=== PATIENT | male | born 1935 | race Caucasian/White ===

== ENCOUNTER 2019-02-01 14:47 | Inpatient (IN) | payer MEDICARE ==
[~2019-02-01] VITALS: Ht 172.7 cm; Wt 85.6 kg
[2019-02-01 15:45] LABS: BASOPHILS ABSOLUTE AUTO 0.03 K/mm3 (0.00-0.23); BASOPHILS PERCENT AUTO 0 % (0-2); EOSINOPHILS ABSOLUTE AUTO 0.02 K/mm3 (0.00-0.68); EOSINOPHILS PERCENT AUTO 0 % (0-6); Hemoglobin 10.3 g/dL (13.5-17.5); IMMATURE GRAN ABSOLUTE AUTO 0.07 K/mm3 (0.00-0.10); IMMATURE GRAN PERCENT AUTO 1 % (0-1); LYMPHOCYTES ABSOLUTE AUTO 1.55 K/mm3 (0.84-5.20); LYMPHOCYTES PERCENT AUTO 11 % (21-46); MONOCYTES ABSOLUTE AUTO 1.47 K/mm3 (0.16-1.47); MONOCYTES PERCENT AUTO 11 % (4-13); Mean Corpuscular HGB 32.7 pg (26.0-34.0); Mean Corpuscular HGB Conc 32.2 g/dL (31.5-36.5); Mean Corpuscular Volume 102 fL (80-100); NEUTROPHILS ABSOLUTE AUTO 10.42 K/mm3 (1.96-9.15); NEUTROPHILS PERCENT AUTO 77 % (41-73); Platelet Count 184 K/mm3 (150-400); RDW Coefficient Variation 13.2 % (11.7-14.2); RDW Standard Deviation 49.5 fL (35.1-46.3); Red Blood Cell Count 3.15 M/mm3 (4.30-5.90); White Blood Cell Count 13.56 K/mm3 (4.00-11.30)
[2019-02-01] MEDS ORDERED: Aspir 8181 MG PO (16:02)
[2019-02-01] MEDS ORDERED: Dyazide 37.5-21 EACH PO (16:03)
[2019-02-01] MEDS ORDERED: ATOR40TA PO (16:03)
[2019-02-01] MEDS ORDERED: AMLO5 PO (16:03)
[2019-02-01] MEDS ORDERED: TERA5 PO (16:04)
[2019-02-01] MEDS ORDERED: METO100 PO (16:04)
[2019-02-01 16:07] LABS: Alanine Aminotransfer (ALT/SGP 18 U/L (12-78); Albumin, Blood 3.7 g/dL (3.4-5.0); Albumin/Globulin Ratio 1.1 (0.8-1.8); Alk Phos 93 U/L (50-136); Anion Gap 8 mmol/L (6-16); Aspartate Aminotrans (AST/SGOT 23 U/L (12-37); Bilirubin, Total 0.4 mg/dL (0.1-1.0); Blood Urea Nitrogen 46 mg/dL (8-24); Bun/Creatinine Ratio 26.6 (12.0-20.0); CO2, Blood 22 mmol/L (21-32); CPK Creatine Kinase 193 U/L (39-308); Calcium, Blood 8.7 mg/dL (8.5-10.1); Chloride, Blood 115 mmol/L (98-108); Creatinine, Blood 1.73 mg/dL (0.60-1.20); Globulin, Blood 3.4 g/dL (2.2-4.0); Glomerular Filtration Rate 40 (60-); Glucose, Blood 117 mg/dL (70-99); Potassium, Blood 4.2 mmol/L (3.5-5.5); Sodium, Blood 145 mmol/L (136-145); Total Protein, Blood 7.1 g/dL (6.4-8.2); Troponin I <0.015 ng/mL (0.000-0.040)
[2019-02-01 18:38] LABS: Source, Urine Clean Catch
[2019-02-01 18:57] LABS: Bilirubin, Urine Neg (Neg); Blood, Urine Neg (Neg); Glucose Qualitative, Urine Neg (Neg); Ketones, Urine Neg (Neg); Leukocyte Esterase, Urine 1+ (Neg); Nitrite, Urine Neg (Neg); Protein, Urine 2+ (Neg); Specific Gravity, Urine 1.015 (1.003-1.022); Urobilinogen, Urine NORM (Normal)
[2019-02-01 19:01] LABS: Appearance, Urine Clear (Clear); Bacteria Rare /hpf; Color, Urine Yellow (P-Yellow); Red Blood Cells, Urine 0-2 /hpf (0-2); Squamous Epithelial Cells Rare /hpf (Few); White Blood Cells, Urine 0-2 /hpf (0-5)
--- NOTE | 2019-02-01 19:45 | NUR ---
PT ARRIVED TO ICU 9 FROM ER VIA [facility], ACCOMPANIED BY CHEMIST PHARMACEUTICAL MARILY. PT IS A/O X4 BUT IS SLOW TO RESPOND AND STATES HE IS NOT NORMALLY SLOW TO RESPOND. PT STATES WHEN HIS BP IS LOW HIS MENTATION IS FOGGY. SEE VS FLOWSHEET. PT HAS MATTHEW THAT HAS ABOUT 300ML IN THE BAG. LR BOLUS HANGING FROM ER. HAS ABRAISON TO R FOREHEAD FROM FALL AT HOME TODAY, ALSO HAS SOME SCABBED OVER SCRAPES TO RFA. PT IS ABLE TO ASSIST WITH TURNING IN BED AND HAS STRONG CROWNING HAMMER OPERATOR BILAT.
--- NOTE | 2019-02-01 20:45 | NUR ---
CALLED MICHELLE SINGER AERODYNAMICS PROFESSOR ABOUT HYPOTENSION. NEW ORDERS FOR ANOTHER BOLUS RECEIVED.
--- NOTE | 2019-02-01 20:45 | NUR ---
CRITICAL LAB VALUE/HYPOTENSION MICHELLE SINGER NP, NOTIFIED OF CRITICAL LACTIC ACID LEVEL AND HYPOTENSION. NEW ORDERS RECEIVED AT THIS TIME.
[2019-02-01] MEDS ORDERED: NAPR220 PO (21:15)
--- NOTE | 2019-02-01 22:23 | NUR ---
CALLED MICHELLE SINGER PICKLE CUTTER ABOUT PT REQUIRING MORE OXYGEN AND LS NOW CRACKLES T/O. PT COUGHED UP PINK SPUTUM. CXR DONE AND BIPAP PLACED. BIPAP 14/7 FIO2 65% AND SPO2 NOW MID 90'S. PT HAS FEVER OF 102.4, TYLENOL GIVEN. DAUGHTER AT BEDSIDE UPDATED.
[2019-02-01 22:34] LABS: PCO2 Arterial 41.6 mmHg (35-45); pH Blood Arterial 7.33 (7.35-7.45)
[2019-02-02 03:11] LABS: Hematocrit 29.7 % (37.0-53.0); Hemoglobin 9.5 g/dL (13.5-17.5); Mean Corpuscular HGB 32.1 pg (26.0-34.0); Mean Corpuscular Volume 100 fL (80-100); Mean Platelet Volume 9.9 fL (9.1-12.4); Platelet Count 150 K/mm3 (150-400); RDW Coefficient Variation 13.5 % (11.7-14.2); RDW Standard Deviation 49.8 fL (35.1-46.3); Red Blood Cell Count 2.96 M/mm3 (4.30-5.90); White Blood Cell Count 8.43 K/mm3 (4.00-11.30)
[2019-02-02 03:30] LABS: Bun/Creatinine Ratio 24.3 (12.0-20.0); Calcium, Blood 7.9 mg/dL (8.5-10.1); Creatinine, Blood 1.81 mg/dL (0.60-1.20); Potassium, Blood 4.3 mmol/L (3.5-5.5); Troponin I 0.044 ng/mL (0.000-0.040)
[2019-02-02 03:38] LABS: BAND PERCENT MAN 6 % (0-8); BASOPHILS PERCENT MAN 0 % (0-2); EOSINOPHILS PERCENT MAN 0 % (0-6); LYMPHOCYTES ABSOLUTE MAN 2.02 K/mm3 (0.84-5.20); LYMPHOCYTES PERCENT MAN 24 % (21-46); METAMYELOCYTE ABSOLUTE MAN 0.08 K/mm3 (0.00-0.00); METAMYELOCYTE PERCENT MAN 1 % (0-0); MONOCYTES PERCENT MAN 6 % (4-13); NEUTROPHILS ABSOLUTE MAN 5.81 K/mm3 (1.96-9.15); SEG NEUTROPHILS PERCENT MAN 63 % (41-73); TOTAL CELLS COUNTED 100
--- NOTE | 2019-02-02 06:08 | NUR ---
SUMMARY PT WAS ADMITTED TO ICU 9 AT 1945. WAS HYPOTENSIVE AND RECEIVED 4L BOLUS THAT CORRECTED BP BUT PT QUICKLY DEVELOPED CRACKLES T/O LUNGS AND WAS DESATING ON NC. PT WAS PLACED ON BIPAP AND REMAINED ON BIPAP THE REST OF THE NIGHT. PT STATES HE IS FEELING BETTER. LS HAVE IMPROVED WITH NOW ONLY HAVING FINE CRACKLES IN R BASE. PT PUT OUT 1100 ML IN URINE. TEMP WAS ELEVATED EARLIER IN THE NIGHT WITH TMAX OF 103.3. THIS AM IT IS DOWN TO 100.1 WITH USE OF TYLENOL AND KEEPING ONLY A LIGHT SHEET ON THE PT. PT IS A/O X4 AND SEEMS QUICKER TO RESPOND. DAUGHTER REMAINS AT BEDSIDE ALL NIGHT. NO SIGN OF DISTRESS.
--- NOTE | 2019-02-02 07:15 | NUR ---
START OF SHIFT NOTE: RECEIVED REPORT FROM LEELEE MAGDALNEO, ASSUMED CARE, PATIENT IS AWAKE AND ON BIPAP 04/27/30 %, PATIENT HAS A FULL DONATO AND A LEAK, BIPAP ALARMING CONSTANTLY, PATIENT PLACED BACK ON 6L NC TO ENABLE PT TO EAT BREAKFAST, DAUGHTER AT BEDSIDE, SLEEPING ON COT IN ROOM, PATIENT IS ALERT AND ORIENTED, LUNG SOUNDS ARE DIMINISHED, NSR WITH HR IN 60'S, AFEBRILE, TEMP 98.8, DENIES PAIN AT THIS TIME, BOWEL TONES PRESENT AND HYPERACTIVE, MATTHEW CATHETER IN PLACE, DRAINING GOOD URINE, LR AT 125 CC/HR INFUSING, CALL LIGHT IN REACH, WILL CONTINUE TO MONITOR.
--- NOTE | 2019-02-02 08:22 | NUR ---
IMAGING IN TO PERFORM ORDERED ECHO, PATIENT TOLERATING WELL, RT ALSO IN, CALL LIGHT IN REACH, WILL CONTINUE TO MONITOR.
--- NOTE | 2019-02-02 10:55 | NUR ---
DR. DEY IN TO SEE PATIENT, NEW ORDERS RECEIVED.
--- NOTE | 2019-02-02 12:07 | NUR ---
IMAGING IN TO DO ORDERED CAROTID ULTRA SOUND.
--- NOTE | 2019-02-02 14:10 | NUR ---
PATIENT RESTING COMFORTABLY AT THIS TIME, NO NEEDS IDENTIFIED, AT BEDSIDE, CALL LIGHT IN REACH, WILL CONTINUE TO MONITOR.
--- NOTE | 2019-02-02 14:30 | NUR ---
PATIENT TO IMAGING FOR ORDERED 2 VIEW CHEST XRAY, PER DR. DEY PATIENT MAY GO WITHOUT MONITOR AND NURSE.
--- NOTE | 2019-02-02 14:45 | NUR ---
PATIENT RETURNED FROM XRAY, MOVED BACK TO BED AND PLACED ON MONITOR, PATIENT TOLERATED WELL.
--- NOTE | 2019-02-02 16:13 | NUR ---
DR. DEY CALLED AND CANCELLED PULMONARY CONSULT.
--- NOTE | 2019-02-02 17:50 | NUR ---
SHIFT SUMMARY NOTE: NO ACUTE EVENTS DURING THIS SHIFT, PATIENT IS PLEASANT AND COOPERATIVE, FAMILY BROUGHT IN HEARING AIDS AND GLASSES FOR PATIENT TO INTERACT EASIER, BLOOD PRESSURES ARE IN 130'S WITH HR IN 80'S, PATIENT REMAINS ALERT AND ORIENTED, SLIGHTLY SLOW TO RESPOND, BUT WITH CONCRETE THOUGHT PROCESS, LUNG SOUNDS ARE DIMINISHED BUT CLEAR, PATIENT ON 6L NC THROUGHOUT THIS SHIFT SATING IN UPPER 90'S, NSR ON MONITOR, BOWEL TONES PRESENT BUT HYPOACTIVE, MATTHEW CATHETER IN PLACE WITH CLEAR LIGHT YELLOW URINE DRAINING ADEQUATE AMOUNTS, SCD'S IN PLACE, PATIENT HAD ECHO DONE FIRST THING THIS AM AND EF IS 55 %, CAROTID U/S SHOWED THAT RIGHT CAROTID IS 50 - 69 % OCCLUDED AND LEFT CAROTID IS OCCLUDED SEVERELY AT > 70 %, DR. DEY AWARE, 2 VIEW CHEST XRAY SHOWED IMPROVEMENT AND PULMONARY CONSULT WAS CANCELLED, PATIENT IS EATING AND DRINKING WELL, S/L AT THIS TIME, FAMILY REMAINS AT BEDSIDE, ASSISTING WITH PATIENT CARE, FOR DETAILS SEE SHIFT ASSESSMENT DOCUMENTATION AND NURSES NOTES, CALL LIGHT IN REACH, WILL CONTINUE TO MONITOR AND GIVE REPORT TO ONCOMING PRISON GUARD SUPERVISOR.
--- NOTE | 2019-02-02 20:25 | NUR ---
PT RESTING IN BED. A/O X4. DENIES PAIN AND SOB. PT IS TOLERATING 4L NC. NO SIGN OF DISTRESS. DAUGHTER AT BEDSIDE.
[2019-02-03 03:47] LABS: Hematocrit 30.7 % (37.0-53.0); Hemoglobin 9.8 g/dL (13.5-17.5); Mean Corpuscular HGB 32.8 pg (26.0-34.0); Mean Corpuscular HGB Conc 31.9 g/dL (31.5-36.5); Mean Platelet Volume 9.8 fL (9.1-12.4); Platelet Count 148 K/mm3 (150-400); RDW Coefficient Variation 13.4 % (11.7-14.2); RDW Standard Deviation 50.8 fL (35.1-46.3); Red Blood Cell Count 2.99 M/mm3 (4.30-5.90); White Blood Cell Count 15.48 K/mm3 (4.00-11.30)
[2019-02-03 03:48] LABS: Mean Corpuscular Volume 103 fL (80-100)
[2019-02-03 04:03] LABS: Albumin, Blood 2.5 g/dL (3.4-5.0); Anion Gap 5 mmol/L (6-16); Blood Urea Nitrogen 44 mg/dL (8-24); Bun/Creatinine Ratio 27.8 (12.0-20.0); CO2, Blood 27 mmol/L (21-32); Chloride, Blood 111 mmol/L (98-108); Creatinine, Blood 1.58 mg/dL (0.60-1.20); Glomerular Filtration Rate 45 (60-); Glucose, Blood 97 mg/dL (70-99); Phosphorus, Blood 2.4 mg/dL (2.5-4.9); Potassium, Blood 4.4 mmol/L (3.5-5.5); Sodium, Blood 143 mmol/L (136-145)
[2019-02-03 04:10] LABS: BAND PERCENT MAN 25 % (0-8); BASOPHILS PERCENT MAN 0 % (0-2); EOSINOPHILS PERCENT MAN 2 % (0-6); LYMPHOCYTES ABSOLUTE MAN 3.09 K/mm3 (0.84-5.20); LYMPHOCYTES PERCENT MAN 20 % (21-46); MONOCYTES ABSOLUTE MAN 1.23 K/mm3 (0.16-1.47); MONOCYTES PERCENT MAN 8 % (4-13); NEUTROPHILS ABSOLUTE MAN 10.83 K/mm3 (1.96-9.15); SEG NEUTROPHILS PERCENT MAN 45 % (41-73); TOTAL CELLS COUNTED 100
--- NOTE | 2019-02-03 06:04 | NUR ---
SUMMARY PT RESTING IN BED. NO COMPLAINTS. DID WELL THROUGH THE NIGHT WITHOUT BIPAP. O2 HAS BEEN TITRATED DOWN TO 1L NC. PT IS FEELING BETTER AND MENTATION IS QUICKER THAN THE PREVIOUS NIGHT. ABLE TO SHIFT SELF IN BED AND USE BED ADJUSTMENTS. NO SIGN OF DISTRESS. DAUGHTER AT BEDSIDE ALL NIGHT.
--- NOTE | 2019-02-03 07:15 | NUR ---
START OF SHIFT NOTE: RECEIVED REPORT FROM LEELEE MAGDALENO, ASSUMED CARE, PATIENT IS AWAKE, ALERT AND ORIENTED, RESPONDS MUCH FASTER THAN YESTERDAY, ON 1L NC WITH O2 SATS AT 94 %, VSS, SBP'S NOW SLIGHTLY ELEVATED IN 150'S, LUNG SOUNDS ARE CLEAR BUT DIMINISHED, NSR WITH HR IN 80'S TO 90'S, MURMUR HEARD, BOWEL TONES ARE PRESENT AND HYPOACTIVE, MATTHEW CATHETER IN PLACE D/T URINARY RETENTION, CLEAR LIGHT YELLOW URINE DRAINING, SCD'S IN PLACE AND PATIENT STATES "HE LIKES THOSE THINGS", ALSO VERBALIZED WISH TO MOVE D/T CHRONIC BACK PAIN, UP IN CHAIR, PATIENT WAS SLIGHTLY LIGHTHEADED, SAT AT SIDE OF BED, AND LIGHTHEADEDNESS GONE, THEN WITH WALKER UP TO CHAIR, PATIENT TOLERATED WELL, AWAITING BREAKFAST, DAUGHTER AT BEDSIDE, SPENT NIGHT, CALL LIGHT IN REACH, WILL CONTINUE TO MONITOR.
--- NOTE | 2019-02-03 10:10 | NUR ---
PATIENT CONTINUES TO BE UP IN CHAIR, REPOSITIONED, WARM BLANKET GIVEN, DENIES PAIN OR ANY DISCOMFORT, CALL LIGHT IN REACH, WILL CONTINUE TO MONITOR.
--- NOTE | 2019-02-03 11:11 | NUR ---
DR. DEY IN TO SEE PATIENT, STATUS CHANGE TO PCU.
--- NOTE | 2019-02-03 12:32 | NUR ---
PATIENT CONTINUES TO BE UP IN CHAIR, EATING LUNCH WITH GOOD APPETITE, CALL LIGHT IN REACH, WILL CONTINUE TO MONITOR.
--- NOTE | 2019-02-03 13:24 | NUR ---
ATTEMPTED TO CALL CONSULT FOR DR. STOCK WITH [facility], NO ANSWERING SERVICE AVAILABLE, UNABLE TO LEAVE MESSAGE D/T POSSIBLE PATIENT TRANSFER TO DIFFERENT UNIT, WILL PASS ON CONSULT INFORMATION TO NEXT SHIFT, CALL CONSULT ON MONDAY MORNING, WILL NOTIFY CHARGE NURSE.
--- NOTE | 2019-02-03 14:09 | NUR ---
CALLED DR. STOCK'S CELL PHONE AND LEFT MESSAGE FOR CONSULT ON PATIENT ORDERED BY DR. DEY.
--- NOTE | 2019-02-03 14:21 | NUR ---
DR. STOCK CALLED BACK FOR CONSULTATION ON PATIENT AND CONFIRMED THAT HE WILL SEE PATIENT.
--- NOTE | 2019-02-03 17:10 | NUR ---
PATIENT VERBALIZED WISH TO REMAIN IN CHAIR, STATED "I LIKE IT BETTER HERE IN THE CHAIR".
--- NOTE | 2019-02-03 17:55 | NUR ---
SHIFT SUMMARY NOTE: NO ACUTE EVENTS DURING THIS SHIFT, PATIENT UP TO CHAIR FOR BREAKFAST AND CONTINUES TO BE IN CHAIR, STATED "I FEEL BETTER IN THE CHAIR", LUNG SOUNDS SHOWED SOME CRACKLES, RECEIVED ONE TIME DOSE OF LASIX 20 MG IV, 2L URINE OUTPUT, CLEAR LIGHT YELLOW URINE, PATIENT HAS GOOD APPETITE AND EATS AT LEAST 80 % OF EACH MEAL, , DAUGHTER AND SON IN LAW AT BEDSIDE THROUGHOUT DAY, PATIENT IS MUCH MORE ALERT AND HAS A NORMAL RESPONSE TIME COMPARED TO SLOW RESPONSE YESTERDAY, VSS, LOW GRADE TEMP OF 99.2, RECEIVED TYLENOL 650 MG PO ONCE FOR TEMP OF 100.2 THIS AM, SBP'S RANGE FROM 120'S TO 150'S, HOME MEDICATIONS NOT REINSTATED YET, DR. DEY IN TO SEE PATIENT DOWNGRADED TO PCU, DR. STOCK CONSULTED AND CALLED, FOR DETIALS SEE SHIFT ASSESSMENT DOCUMENTATION AND NURSES NOTES, CALL LIGHT IN REACH, WILL CONTINUE TO MONITOR AND GIVE REPORT TO ONCOMING NOC SHIFT.
--- NOTE | 2019-02-03 21:27 | NUR ---
PT UP IN RECLINER CHAIR. NO COMPLAINTS. DOESN'T WANT TO GO BACK TO BED YET. NO SIGN OF DISTRESS.
[2019-02-04 03:24] LABS: Hematocrit 32.2 % (37.0-53.0); Hemoglobin 10.2 g/dL (13.5-17.5); Mean Corpuscular HGB 31.5 pg (26.0-34.0); Mean Corpuscular HGB Conc 31.7 g/dL (31.5-36.5); Mean Corpuscular Volume 99 fL (80-100); Mean Platelet Volume 10.5 fL (9.1-12.4); Platelet Count 153 K/mm3 (150-400); RDW Coefficient Variation 13.1 % (11.7-14.2); RDW Standard Deviation 47.9 fL (35.1-46.3); Red Blood Cell Count 3.24 M/mm3 (4.30-5.90); White Blood Cell Count 15.41 K/mm3 (4.00-11.30)
[2019-02-04 03:39] LABS: Albumin, Blood 2.6 g/dL (3.4-5.0); Anion Gap 6 mmol/L (6-16); Blood Urea Nitrogen 38 mg/dL (8-24); Bun/Creatinine Ratio 29.5 (12.0-20.0); CO2, Blood 28 mmol/L (21-32); Calcium, Blood 8.6 mg/dL (8.5-10.1); Chloride, Blood 109 mmol/L (98-108); Creatinine, Blood 1.29 mg/dL (0.60-1.20); Glomerular Filtration Rate 57 (60-); Glucose, Blood 110 mg/dL (70-99); Phosphorus, Blood 2.6 mg/dL (2.5-4.9); Potassium, Blood 4.1 mmol/L (3.5-5.5); Sodium, Blood 143 mmol/L (136-145)
[2019-02-04 03:47] LABS: BAND PERCENT MAN 13 % (0-8); BASOPHILS PERCENT MAN 0 % (0-2); EOSINOPHILS ABSOLUTE MAN 0.15 K/mm3 (0.00-0.68); EOSINOPHILS PERCENT MAN 1 % (0-6); LYMPHOCYTES ABSOLUTE MAN 2.15 K/mm3 (0.84-5.20); LYMPHOCYTES PERCENT MAN 14 % (21-46); MONOCYTES PERCENT MAN 2 % (4-13); NEUTROPHILS ABSOLUTE MAN 12.79 K/mm3 (1.96-9.15); SEG NEUTROPHILS PERCENT MAN 70 % (41-73); TOTAL CELLS COUNTED 100
--- NOTE | 2019-02-04 06:32 | NUR ---
NO CHANGES THIS SHIFT. PT IN RECLINER AND DECLINES TO GET IN BED. NO REQUESTS.
--- NOTE | 2019-02-04 17:42 | NUR ---
NOTE PT ALERT AND ORIENTED. SR. UP IN THE RECLINER ALL DAY. HE DID WALK WITH PHYSICAL THERAPY THIS AFTERNNON. TOLERATED WELL. GAIT STEADY. NEURO WNL. ABLE TO FEED SELF. AT BEDSIDE. VSS. CONTINUE POT.
--- NOTE | 2019-02-04 18:44 | NUR ---
DR STOCK HAVE HAD NO DIRECT COMMUNICATION WITH DR STOCK. CALLED CLINIC TWICE. WAS TOLD CLINIC WOULD BE DONE AT 1800. AT 1840 CALLED AND LEFTA MESSAGE ON DR HARRISON PHONE. FAMILY WAITING. PT CAN'T DRIVE AFTER DARK. CONTINUE POT.
--- NOTE | 2019-02-04 19:15 | NUR ---
[facility] REPORT RECIEVED FROM OFF GOING RN TAMARA.MONITOR INTACT SHOWING SINUS RHYTHM HEART RATE 80'S-90'S. UP IN CHAIR VISITING WITH FAMILY IN ROOM AWAITING DR STOCK. LUNG SOUNDS CLEAR UPPER LOBES WITH DECREASED SOUNDS IN THE BASES. RESPIRATIONS REGULAR AND EASY WITH O2 IN PLACE AT 1 LITEER/MIN. SPO2 93-95%. ABDOMEN SOFT WITH BOWEL SOUNDS FOUR QUADS. MATTHEW PATENT DRAINING CONCETTA URINE. TRACE GENERALIZED DEPENDENT EDEMA. CONTINUE TO MONITOR AND REPORT CHANGE IN PATIENT CONDITION.
--- NOTE | 2019-02-04 19:30 | NUR ---
DR STOCK IN ROOM FAMILY AT BEDSIDE ATTENTIVE TO CARES. ORDERS NOTED
[2019-02-05 03:26] LABS: Hematocrit 30.6 % (37.0-53.0); Hemoglobin 9.7 g/dL (13.5-17.5); Mean Corpuscular HGB 31.8 pg (26.0-34.0); Mean Corpuscular HGB Conc 31.7 g/dL (31.5-36.5); Mean Corpuscular Volume 100 fL (80-100); Mean Platelet Volume 9.9 fL (9.1-12.4); Platelet Count 186 K/mm3 (150-400); RDW Standard Deviation 47.7 fL (35.1-46.3); Red Blood Cell Count 3.05 M/mm3 (4.30-5.90); White Blood Cell Count 12.15 K/mm3 (4.00-11.30)
[2019-02-05 03:42] LABS: Albumin, Blood 2.4 g/dL (3.4-5.0); Anion Gap 6 mmol/L (6-16); Blood Urea Nitrogen 38 mg/dL (8-24); Bun/Creatinine Ratio 28.4 (12.0-20.0); CO2, Blood 29 mmol/L (21-32); Calcium, Blood 8.4 mg/dL (8.5-10.1); Chloride, Blood 107 mmol/L (98-108); Creatinine, Blood 1.34 mg/dL (0.60-1.20); Glomerular Filtration Rate 54 (60-); Glucose, Blood 116 mg/dL (70-99); Phosphorus, Blood 2.9 mg/dL (2.5-4.9); Sodium, Blood 142 mmol/L (136-145)
[2019-02-05 03:51] LABS: BAND PERCENT MAN 6 % (0-8); BASOPHILS PERCENT MAN 0 % (0-2); EOSINOPHILS PERCENT MAN 5 % (0-6); LYMPHOCYTES ABSOLUTE MAN 2.06 K/mm3 (0.84-5.20); LYMPHOCYTES PERCENT MAN 17 % (21-46); MONOCYTES ABSOLUTE MAN 0.97 K/mm3 (0.16-1.47); MONOCYTES PERCENT MAN 8 % (4-13); SEG NEUTROPHILS PERCENT MAN 64 % (41-73); TOTAL CELLS COUNTED 100
--- NOTE | 2019-02-05 05:46 | NUR ---
SHIFT SUMMARY : REST QUIETLY WHEN UNDISTURBED. MONITOR INTACT SHOWING SINUS RHYTHM HEART RATE 80'S-90'S. LUNG SOUNDS CLEAR UPPER LOBES WITH DECREASED SOUNDS IN THE BASES RESPIRATIONS REGULAR AND EASY WITH AUTO CPAP IN PLACE SPO2 91-96% ABDOMEN SOFT WITH BOWEL SOUNDS FOUR QUADS. MATTHEW PATENT DRAINING CONCETTA URINE. NPO SINCE 0500. FOR ANTICIPATED PROCEDURE IN AM. [place]URTADO WELL IN BED. REPOSITIONS SELF. CONTINUE TO MONITOR AND REPORT CHANGE IN PATIENT CONDITION.L
--- NOTE | 2019-02-05 08:19 | NUR ---
ASSUMED CARE: REPORT RECEIVED FROM RIKKI Bledsoe RN. ASSUMED CARE OF THIS PT AT APPROX 0700. ON ASSESSMENT, THE PT IS RESTING QUIETLY & WEARING CPAP W/ AUTO TITRATE SETTINGS. O2 SATS > 92%, LS ARE CLEAR T/O, DIM IN BASES. MONITOR SHOWS SR W/ HR 60s, BP STABLE. PT HAS NO GI COMPLAINTS, MATTHEW PATENT/ DRAINING. PT's IS AT BEDSIDE & EXPRESSES CONCERN THAT CEREBRAL ANGIOGRAM HAS NOT YET BEGUN. SHE STS THAT SHE WAS TOLD BY PROVIDER THAT THE PROCEDURE WOULD OCCUR AT APPROX 0800 THIS AM. KALEY Salgado RN LOAD BUILDER, HAS SPOKEN W/ HEART CENTER STAFF WHO STATE THAT THE PT IS NOT ON THEIR PROCEDURE SCHEDULE AT THIS TIME. WILL F/U WITH DR STOCK IF NO UPDATES BY APPROX 0900, IS AGREEABLE TO THIS PLAN. WILL CONTINUE TO MONITOR & UPDATE NEEDED.
--- NOTE | 2019-02-05 12:20 | NUR ---
DR DEY / HEART CENTER: PROVIDER AT BEDSIDE TO SEE PT. NO CHANGES AT THIS TIME. SHE WOULD LIKE THE PT's TO BE NOTIFIED ON RETURN TO UNIT THAT SHE HAS ROUNDED & WILL DISCUSS THE FINDINGS OF THIS MORNINGS CHEST CT W/ PT & TOMORROW AM. CALL TO HEART CENTER TO SEE IF PT's CEREBRAL ANGIOGRAM HAS BEEN SCHEDULED & WHAT TIME THAT MAY BE. THEY STATE HE IS SCHEDULED FOR 1230 BUT THAT BOTH CATH LABS ARE OCCUPIED AT THE MOMENT. ONCE THESE PROCEDURES ARE COMPLETED, THE PT IS NEXT ON THE LIST. WILL CONTINUE TO MONITOR & UPDATE NEEDED.
--- NOTE | 2019-02-05 13:33 | NUR ---
HEART CENTER: STAFF HAS TAKEN PT FOR PROCEDURE AT APPROX 1245. PT's & DAUGHTER REMAIN IN ROOM.
--- NOTE | 2019-02-05 15:00 | NUR ---
RETURN FROM PROCEDURE: PT RETURNED FROM AT APPROX 1440. ON ARRIVAL, HE IS A&O, PLEASANT & COOPERATIVE. PER REPORT, PT RECEIVED 0.5 MG VERSED & 12.5 MCG FENTANYL DURING PROCEDURE. HE IS LYING SUPINE W/ BED IN REVERSE TRENDELENBURG POSITION. R GROIN SITE WAS CLOSED W/ ANGIOSEAL DEVICE & TEGADERM CHG IS IN PLACE. THE AREA IS FREE OF BLEEDING, BRUISING OR HEMATOMA FORMATION ON ARRIVAL. PT DENIES N/T & CAP REFILL TO RLE IS <3 SECONDS. VSS. WILL CONTINUE TO MONITOR & UPDATE NEEDED.
--- NOTE | 2019-02-05 17:42 | NUR ---
SHIFT SUMMARY: NO ACUTE CHANGES SINCE PRIOR UPDATE. PT SITTING UP W/ HOB AT 20 DEGREES & TOLERATING PO INTAKE WELL W/ NO C/O NAUSEA. HE REMAINS A&O. PT ON RA W/ O2 SATS > 90%. MONITOR SHOWS SR, HR 80s, BP STABLE. PT HAS NO GI COMPLAINTS & MATTHEW REMAINS PATENT/ DRAINING. FAMILY IS AT BEDSIDE & SUPPORTIVE W/ CARE. WILL CONTINUE TO MONITOR & REPORT OFF TO ONCOMING RN.
--- NOTE | 2019-02-05 19:15 | NUR ---
ASSUME CARE: REPORT RECIEVED FROM OFF GOING RN LINDA. MONITOR INTACT SHOWING SINUS RHYTHM HEART RATE 80'S. LUNG SOUND CLEAR UPPER LOBES WITH DECREASED SOUNDS IN THE BASES. RESPIRATIONS REGUAR AND EASY ON ROOM AIR WHEN AWAKE. ABDOMEN SOFT WITH BOWEL SOUNDS FOUR QUADS. GROIN SITE CLEAR SOFT .MATTHEW PATENT DRAINING CONCETTA URINE.REPOSITIONS SELF IN BED.CONTINUE TO MONITOR AND REPORT CHANGE IN PATIENT CONDITION
[2019-02-06 03:21] LABS: BASOPHILS ABSOLUTE AUTO 0.03 K/mm3 (0.00-0.23); BASOPHILS PERCENT AUTO 0 % (0-2); EOSINOPHILS ABSOLUTE AUTO 0.47 K/mm3 (0.00-0.68); EOSINOPHILS PERCENT AUTO 5 % (0-6); Hemoglobin 9.9 g/dL (13.5-17.5); IMMATURE GRAN ABSOLUTE AUTO 0.05 K/mm3 (0.00-0.10); IMMATURE GRAN PERCENT AUTO 1 % (0-1); LYMPHOCYTES PERCENT AUTO 23 % (21-46); MONOCYTES ABSOLUTE AUTO 0.93 K/mm3 (0.16-1.47); MONOCYTES PERCENT AUTO 9 % (4-13); Mean Corpuscular HGB 31.9 pg (26.0-34.0); Mean Corpuscular HGB Conc 31.9 g/dL (31.5-36.5); Mean Corpuscular Volume 100 fL (80-100); Mean Platelet Volume 9.8 fL (9.1-12.4); NEUTROPHILS ABSOLUTE AUTO 6.46 K/mm3 (1.96-9.15); NEUTROPHILS PERCENT AUTO 63 % (41-73); Platelet Count 203 K/mm3 (150-400); RDW Coefficient Variation 12.9 % (11.7-14.2); RDW Standard Deviation 47.3 fL (35.1-46.3); White Blood Cell Count 10.34 K/mm3 (4.00-11.30)
[2019-02-06 03:37] LABS: Albumin, Blood 2.5 g/dL (3.4-5.0); Anion Gap 6 mmol/L (6-16); Blood Urea Nitrogen 33 mg/dL (8-24); Bun/Creatinine Ratio 28.2 (12.0-20.0); CO2, Blood 29 mmol/L (21-32); Calcium, Blood 8.6 mg/dL (8.5-10.1); Chloride, Blood 107 mmol/L (98-108); Creatinine, Blood 1.17 mg/dL (0.60-1.20); Glomerular Filtration Rate >60 (60-); Glucose, Blood 116 mg/dL (70-99); Phosphorus, Blood 3.2 mg/dL (2.5-4.9); Potassium, Blood 3.9 mmol/L (3.5-5.5); Sodium, Blood 142 mmol/L (136-145)
--- NOTE | 2019-02-06 09:00 | NUR ---
INITIAL ASSESSMENT PATIENT SITTING UP ON SIDE OF BED UPON ENTERING ROOM. PATIENT ALERT AND ORIENTED X 4, M[place]ON[place]. PATIENT AFEBRILE. PATIENT COMPLAINS THAT R POINTER FINGER SLIGHTLY SORE BUT MANAGEABLE AT THIS TIME. PATIENT DECREASED FROM 2 L NC TO RA, REMAINS SATTING 90% AND GREATER. LUNGS COARSE THROUGHOUT. PATIENT STATES HE IS COUGHING UP MODERATE AMOUNTS OF THICK, BIGGS SPUTUM. PATIENT IN NSR, HR 60S TO 80S. SBP IN THE 140S. SCDS IN PLACE. ABDOMEN MODERATELY DISTENDED, SOFT, WITH NORMOACTIVE BS. PATIENT HAS NOT HAD BM SINCE THE BUT STATED HE IS NOT CONCERNED ABOUT IT BECAUSE "HASN'T BEEN PUTTING IN VERY MUCH". MATTHEW DRAINING ADEQUATE AMOUNT OF YELLOW COLORED URINE. PATIENT HAS SCATTERED ABRASIONS AND SCABS FROM FALLING AT HOME PRIOR TO ADMIT. IVS FLUSHED AND SALINE LOCKED. BED LOW, CALL LIGHT IN REACH. WILL CONTINUE TO MONITOR PATIENT FREQUENTLY THROUGHOUT SHIFT.
--- NOTE | 2019-02-06 10:53 | NUR ---
Pt says he had a shower the last 2 days and feels he doesn't need another today. Offered a warm wash cloth for face and hands and he stated he already had one. scd's placed. RN notified.
--- NOTE | 2019-02-06 12:04 | NUR ---
UPDATED DR. DEY ON PATIENT STATUS. INFORMED THAT PATIENT REPORTS HE HAS DIABETES AND THAT IT IS CONTROLLED BY DIET AT HOME. STATED NO NEED TO DO CHEMBGS RIGHT NOW. INFORMED DOCTOR THAT PATIENT HAS NOT HAD BM SINCE THE . ORDER FOR MIRALAX RECEIVED. INFORMED THAT MATTHEW IN FOR RETENTION. ORDER RECEIVED TO REMOVE MATTHEW AND START DAILY FLOMAX.
--- NOTE | 2019-02-06 12:39 | NUR ---
PATIENT RESTING QUIETLY IN BED. PATIENT REPOSITIONING SELF. VITAL SIGNS STABLE. MATTHEW REMOVED. SCHEDULED MIRALAX AND FLOMAX STARTED. NO ACUTE CHANGES TO NOTE ON. PATIENT HAS NO COMPLAINTS. BED LOW, CALL LIGHT IN REACH. PATIENT AT BEDSIDE.
--- NOTE | 2019-02-06 15:00 | NUR ---
LATE ENTRY: PATIENT TRANSPORTED TO ROOM 304 BY ICU INSTRUCTOR PHYSICAL AND TRANSFERED FROM W/C WITH THE ASSISTANCE OF ICU AID PRIOR TO RN ARRIVING TO ROOM TO ASSESS PATIENT. PATIENT STATED RLE/ANKLE HURT UPON TRANSFER.
--- NOTE | 2019-02-06 15:02 | NUR ---
SHIFT SUMMARY PATIENT REMAINED ALERT AND ORIENTED X 4, [place]. PATIENT HAS REMAINED [place]K. PATIENT HAS BEEN SATTING WELL ON RA. PATIENT HAS REMAINED IN SR, HR 60S TO 80S. SBP 140S TO 150S. MIRALAX STARTED TODAY PATIENT HAS NOT HAD BM SINCE THE . PATIENT HAS BEEN TOLERATING CARDIAC DIET WELL. MATTHEW REMOVED THIS SHIFT. URINE YELLOW IN COLOR. PATIENT HAS VOIDED POST MATTHEW REMOVAL WITH NO PROBLEMS. NO CHANGE IN SKIN. PATIENT HAS BEEN REPOSITIONING SELF. HAS BEEN IN MOST OF THE DAY VISITING. PATIENT HAS NO COMPLAINTS AT THIS TIME. PATIENT WILL BE TRANSFERRING SHORTLY TO MEDICAL FLOOR, ROOM 304. WILL BE WALKING UP TO ROOM WITH PATIENT AND CHEESE PACKER.
--- NOTE | 2019-02-06 15:13 | NUR ---
PATIENT TRANSFERRED TO MEDICAL FLOOR WITH AT SIDE.
--- NOTE | 2019-02-06 16:40 | NUR ---
SHIFT SUMMARY RECEIEVED REPORT FROM LILIANA IN ICU. PATIENT ARRIVED TO ROOM 304 WITH AT SIDE. ASSESSMENT COMPLETED. PATIENT WITHOUT PAIN OR DISCOMFORT. BLOOD PRESSURE REMAINS ELEVATED. SCABS FROM FALL PRIOR TO HOSPITALIZATION HEALING WELL. SMALL INCISION SITE COVERED WITH TEGADERM TO RIGHT THIGH; HEALING WELL WITHOUT S/S INFECTION NOTED. WILL CONTINUE TO MONITOR AND PROVIDE CARE NEEDED.
--- NOTE | 2019-02-06 18:45 | NUR ---
PATIENT CALLED ME INTO ROOM C/O PAIN TO RLE THAT HAS INCREASED SINCE COMING TO UNIT AND NOTED SWELLING IN COMPARISON TO LLE. RLE
--- NOTE | 2019-02-07 00:55 | NUR ---
PT USED BEDSIDE COMMODE TECHNICAL SPEC ASKED PT IF HE ONLY WANTED TO URINATE SO THAT HE WOULD BE ABLE TO STAY IN BED WITHOUT BEARING WEIGHT ON HIS FOOT. PT STATED HE "MAY HAVE TO" HAVE A BOWEL MOVEMENT SO THE TECHNICAL SPEC GOT THE BEDSIDE COMMODE AND PLACED IT DIRECTLY BY THE BEDSIDE. PTS FAMILY MEMBER AND TECHNICAL SPEC ASSISTED THE PT TO STAND AND PIVOT, ENCOURAGING THE PT NOT TO BEAR WEIGHT ON HIS SWOLLEN ANKLE. PT DID NOT HAVE A BOWEL MOVEMENT.
--- NOTE | 2019-02-07 02:14 | NUR ---
SWOLLEN ANKLE PTS DAUGHTER VOICED [employer] REGARDING PTS SWOLLEN ANKLE. DAY NURSE ADDRESSED SWOLLEN ANKLE BY ORDERING DOPPLER US TO R/O DVT. AT APPROXIMATELY 2009 [employer] TECH CALLED [employer]IA [employer] TO NOTIFY THAT RESULTS OF US DOPPLER WERE NEGATIVE FOR DVT. DAUGHTER WANTED TO KNOW ADDITIONAL INFORMATION REGARDING DOPPLER US AND WENT TO ICU REGARDING CONCEARNS. DAUGHTER WAS THEN SENT BACK TO MEDICAL FLOOR PT HAD TRANSFERED EARLIER IN THE DAY AND WAS NOT LONGER AN ICU PT. DAUGHTER BECAME VERY UPSET WHISPERRING UNDER HER BREATH THAT THE STAFF ON MEDICAL FLOOR WERE STUPID AND DIDN'T KNOW WHAT THEY WERE DOING OR WHAT WAS GOING ON. ATTEMPTED TO GATHER ADDITIONAL INFORMATION FROM DAUGHTER IN AN ATTEMPT TO DEFUSE THE SITUATION. THE DAUGHTER STATED THAT AT SOME POINT BETWEEN 1300 AND 1800 THE PT DEVELOPED A SWOLLEN AND PAINFUL ANKLE AND THAT SHE WANTED TO KNOW WHAT HAPPENED AND WAS NOT LEAVING THE HOSPITAL UNTIL SHE FOUND OUT WHAT HAPPENED. THAT DAUGHTER CONTINUED BY STATING THAT NONE OF THE STAFF HAVE ANY IDEA WHAT IS GOING ON, THAT THE DAY SHIFT NURSE DIDN'T EVEN KNOW THAT THE PT HAD A BM AND THE RT SAID THAT THE PT HAD BEEN REFUSING BIPAP BUT PER THE DAUGHTER THE PT HAD BEEN WEARING IT SINCE ADMIT TO THE HOSPITAL. THE DAUGHTER AGAIN ASKED THIS NURSE WHAT WAS WRONG WITH THE PTS ANKLE AND THIS NURSE ASSESSED THE ANKLE, ASKED THE PT TO WIGGLE TOES, AND MOVE ANKLE AND FOOT, PT WAS ABLE TO DO SO AND STATED THAT ANKLE WAS FEELING BETTER. THIS NURSE ASKED PT IF HE WOULD LIKE SOMETHING FOR THE PAIN AND THE PT REPEATED, NO, IT IS FEELING BETTER I AM JUST TIRED AND WANT TO GET SOME SLEEP. THE DAUGHTER CONTINUED TO INSIST THAT THIS NURSE DO SOMETHING ABOUT THE ANKLE SO THIS NURSE ADVISED DAUGHTER THAT A CALL TO THE HOSPITALIST WOULD BE MADE TO ASK FOR AN ORDER FOR AN X-RAY TO R/O ANY KIND OF FX. THIS NURSE ADVISED AT THAT TIME THAT IT WAS NOT CLEAR HOW LONG IT WOULD TAKE TO GET THE X-RAY OR HOW LONG IT WOULD TAKE TO READ THE RESULTS. RECIEVED ORDER FOR X-RAY AND IT WAS COMPLETED. DAUGHTER CAME OUT AND STATED THAT PT NEEDED TO USE THE BR. PER REPORT PT WAS A SBA WITH A WALKER TO THE BR SO THIS NURSE SENT IN BURRING WHEEL OPERATOR PT HAD STATED THAT ANKLE WAS FEELING BETTER. FOLLOWING TOILETING DAUGHTER CAME OUT TO ASK FOR WARM BLANKET AND FOR RESULTS OF X-RAY AND THIS NURSE AGAIN ADVISED DAUGHTER THAT IT WAS NOT CLEAR WHEN X-RAY WOULD BE READ. DAUGHTER APPEARED ANGRY AND RETURNED TO PT ROOM. THIS NURSE THEN CALLED IMAGING WHO INFORMED THIS NURSE THAT RESULTS WOULD NOT BE READ UNTIL MORNING THE SITUATION WAS NOT LIFE THREATENING. ADVISED DAUGHTERS OF THIS WHO THEN BECAME VERY ANGRY STATING THAT THIS IS REDICULOUS, AND LACK OF CARE IS BEING PROVIDED TO THEIR FAMILY MEMEBER. THE DAUGHTER STATED THAT THE BURRING WHEEL OPERATOR WHO CAME IN MAKE THE PT WALK TO THE BR EVEN THOUGH THE PT WAS IN PAIN AND DID RETURN PTS C-PAP MASK, OR CONTINUOUS PULSE OX UPON RETURNING PT TO BED. ACCORDING TO BURRING WHEEL OPERATOR, THE PT WAS OFFERED A URINAL NOT TO HAVE TO BEAR ANY WEIGHT ON ANKLE AND THE PT STATED THAT HE MIGHT HAVE TO POOP SO PT GOT PT UP, ENCOURAGED NON-WEIGHT BEARING TO RIGHT ANKLE, AND STAND PIVOT TRANSFERED PT TO [facility] BURRING WHEEL OPERATOR DID NOT HAVE PT WALK TO THE BR, OR WALK AT ALL AND DID ENCOURAGE PT TO BE NON-WEIGHT BEARING. WHILE ENTERING ROOM AND ATTEMPTING TO DEFUSE SITUATION IT DID NOT APPEAR THAT THERE WAS MUCH THAT COULD BE SAID TO PLEASE THESE TWO DAUGHTERS, WHO CONTINUALLY WHISPPERED TO EACH OTHER UNDER THEIR BREATH THAT WE WERE STUPID, NEGLECTFUL, AND REDICULTOUS. THIS NURSE THEN OFFERRED FOR TWO DAUGHTERS TO SPEAK WITH CHARGE NURSE. WENT TO TWO CHARGE NURSES AND EXPLAINED THE SITUTAION, WHO THEN NOTIFIED THE NURSING TECHNICIAN HELPER INSTRUMENT WHO WENT AND SPOKE WITH THE DAUGHTERS.
--- NOTE | 2019-02-07 04:01 | NUR ---
SHIFT SUMMARY PT ADMITTED FOR SYNCOPE HE WAS FOUND DOWN IN THE DRIVEWAY AFTER WASHING HIS [place] PER DAUGHTER. HE HAS BEEN USING HIS BIPAP THROUGHOUT THE NIGHT WITH A 1.5 L BLEED. HE HAS A 18 G IV IN THE RIGHT FOREARM AND TAKES HIS MEDS WHOLE. HE HAS APPEARED TO BE SLEEPING COMFORTABLY THROUGHOUT THE NIGHT. WILL CONTINUE TO MONITOR.
[2019-02-07] MEDS ORDERED: ATOR40TA PO (10:24)
--- NOTE | 2019-02-07 10:26 | NUR ---
PATIENT'S BROUGHT IN ALL OF PATIENT'S HOME MEDS AND MED REC UPDATED/COMPLETED.
--- NOTE | 2019-02-07 17:35 | NUR ---
SHIFT SUMMARY PATIENT HAS HAD AN UNEVENTFUL DAY. HAS BEEN AT BEDSIDE ALL DAY; SHE HAS BEEN HELPFUL WITH PATIENT CARE. PATIENT NOTED WITH A FEVER THIS AFTERNOON AND TYLENOL ADMINISTERED PER EMAR; EFFECTIVENESS PENDING. THE PATIENT HAS BEEN PLEASANT AND COOPERATIVE WITH STAFF. WILL CONTINUE TO MONITOR AND PROVIDE CARE NEEDED.
--- NOTE | 2019-02-07 17:45 | NUR ---
RECHECKED PATIENTS TEMPERATURE AND IT WAS 101.3; COMING DOWN HOWEVER WILL RECHECK IT AGAIN BEFORE END OF SHIFT TO SEE THAT IT CONTINUES TO COME DOWN.
[2019-02-08 04:34] LABS: BASOPHILS ABSOLUTE AUTO 0.05 K/mm3 (0.00-0.23); BASOPHILS PERCENT AUTO 1 % (0-2); EOSINOPHILS ABSOLUTE AUTO 0.64 K/mm3 (0.00-0.68); EOSINOPHILS PERCENT AUTO 6 % (0-6); Hemoglobin 9.8 g/dL (13.5-17.5); IMMATURE GRAN ABSOLUTE AUTO 0.09 K/mm3 (0.00-0.10); IMMATURE GRAN PERCENT AUTO 1 % (0-1); LYMPHOCYTES ABSOLUTE AUTO 2.48 K/mm3 (0.84-5.20); LYMPHOCYTES PERCENT AUTO 25 % (21-46); MONOCYTES PERCENT AUTO 13 % (4-13); Mean Corpuscular HGB 31.8 pg (26.0-34.0); Mean Corpuscular HGB Conc 31.6 g/dL (31.5-36.5); Mean Corpuscular Volume 101 fL (80-100); Mean Platelet Volume 9.6 fL (9.1-12.4); NEUTROPHILS ABSOLUTE AUTO 5.46 K/mm3 (1.96-9.15); NEUTROPHILS PERCENT AUTO 54 % (41-73); Platelet Count 283 K/mm3 (150-400); RDW Coefficient Variation 12.9 % (11.7-14.2); RDW Standard Deviation 47.7 fL (35.1-46.3); Red Blood Cell Count 3.08 M/mm3 (4.30-5.90); White Blood Cell Count 10.02 K/mm3 (4.00-11.30)
--- NOTE | 2019-02-08 04:48 | NUR ---
SHIFT SUMMARY NO CHANGES TO REPORT OVERNIGHT. IV ABX INFUSED ORDERED. PT DAUGHTERS AT BEDSIDE DURING THE START OF SHIFT. BOTH VERY INVOLVED IN PT CARE, AND ARE AWARE OF CURRENT POC. PT RIGHT HAND REMAINS SWOLLEN, R INDEX FINGER TENDER WITH PALPATION PT UNABLE TO GRASP OR MAKE FIST. R AND L GREAT TOE SWOLLEN ALSO AND R ANKLE. SWELLING HAS REMAINED UNCHANGED T/O THE SHIFT, AND HAS REMAINED UNCHANGED SINCE ITS ONSET AROUND 0300 02/07/19 PER PT REPORT. PT STATES PAIN ABOUT 3 AND DECLINES ANYTHING FOR PAIN. PT RESTS COMFORTABLY T/O THE SHIFT AND DENIES NEEDS. VITALS STABLE. BIPAP AT NIGHT. CONT BIOX IN PLACE. SATS WNL. WILL CONTINUE TO MONITOR AND REPORT TO ONCOMING RN.
--- NOTE | 2019-02-08 07:48 | NUR ---
ASSUMED CARE OF PT- BEDSIDE REPORT COMPLETED WITH NIHGT LEELEE PARKER. PT WOKE TO STAFF PRESENCE. PER REPORT PT ALERT AND ORIENTED WITH A POSSIBLE DC TODAY. PT ON ROOM AIR AT THIS TIME, ON CONT BIOX.
--- NOTE | 2019-02-08 10:12 | NUR ---
CALLED DR JOE- PT STATED HIS BP IS TOO LOW FOR HIM, HE FEELS "WONKY IN THE HEAD." CALLED DR JOE, OK TO HOLD MORNING DOSE OF LASIX.
[2019-02-08] MEDS ORDERED: CLOP75 PO (12:02)
[2019-02-08] MEDS ORDERED: ACET325 PO (12:02)
[2019-02-08] MEDS ORDERED: METO50 PO (12:03)
[2019-02-08] MEDS ORDERED: CEFP200 PO (12:04)
[2019-02-08] MEDS ORDERED: AZIT500 PO (12:04)
--- NOTE | 2019-02-08 15:13 | NUR ---
DISCHARGE NOTE- PT AND SPOUSE RECIEVED VERBAL AND WRITTEN DISCHARGE INSTRUCTIONS AND ACKNOWLEDGED UNDERSTANDING OF THEM. MEDS FAXED TO [facility] PER PT REQUEST. IV DC'D PRIOR TO DISCHARGE. CONTACT INFO GIVEN IF QUESTIONS SHOULD ARISE.
== END 2019-02-08 14:25 | disposition home health service (06) | DRG 871 ==
LOC: ER 14:47 → ICUW 14:48 → MEDS 02-06 15:15 → ENPENDDIS 02-08 08:22 → MEDS 02-08 14:25
PROVIDERS: Emergency Medicine; Internal Medicine; ADMIT Family Medicine
PROC: 5A09357 Assistance with Respiratory Ventilation, Less than 24 Consecutive Hours, Continuous Positive Airway Pressure (ICD-10-PCS; principal; 2019-02-02)
PROC: B3131ZZ Fluoroscopy of Right Common Carotid Artery using Low Osmolar Contrast (ICD-10-PCS; 2019-02-05)
PROC: B31G1ZZ Fluoroscopy of Bilateral Vertebral Arteries using Low Osmolar Contrast (ICD-10-PCS; 2019-02-05)
PROC: B3121ZZ Fluoroscopy of Left Subclavian Artery using Low Osmolar Contrast (ICD-10-PCS; 2019-02-05)
DX: A41.9 Sepsis, unspecified organism (principal); J18.1 Lobar pneumonia, unspecified organism; J96.01 Acute respiratory failure with hypoxia; I50.31 Acute diastolic (congestive) heart failure; N17.9 Acute kidney failure, unspecified; I24.8 Other forms of acute ischemic heart disease; N39.0 Urinary tract infection, site not specified; I25.10 Atherosclerotic heart disease of native coronary artery without angina pectoris; Z95.1 Presence of aortocoronary bypass graft; Z87.891 Personal history of nicotine dependence; I95.9 Hypotension, unspecified; G47.33 Obstructive sleep apnea (adult) (pediatric); N40.1 Benign prostatic hyperplasia with lower urinary tract symptoms; R33.9 Retention of urine, unspecified; D63.1 Anemia in chronic kidney disease; I65.23 Occlusion and stenosis of bilateral carotid arteries; Z79.82 Long term (current) use of aspirin; Z79.02 Long term (current) use of antithrombotics/antiplatelets; E11.22 Type 2 diabetes mellitus with diabetic chronic kidney disease; I12.9 Hypertensive chronic kidney disease with stage 1 through stage 4 chronic kidney disease, or unspecified chronic kidney disease; N18.9 Chronic kidney disease, unspecified
CPT/HCPCS: 36222; 36223; 36225; 36226; 36415; 36600; 51702; 51798; 70450; 71045; 71046; 71250; 73600; 80048; 80053; 80069; 81001; 82533; 82550; 82803; 82947; 83605; 83880; 84145; 84484; 84550; 85025; 87040; 87070; 87077; 87086; 87147; 87186; 87205; 90471; 90714; 93005; 93010; 93306; 93880; 93971; 94660; 94762; 96361-59; 96374-59; 97110; 97116; 97162; 97166; 97535; 99152; 99153; 99285-25; A9270; C1760; C1769; C1887; C1894; J0456; J0696; J1644; J1650; J1940; J2250; J2405; J3010; J7030; J7050; J7120; Q9967

== ENCOUNTER 2019-03-13 19:59 | Emergency (ER) | payer MEDICARE ==
[~2019-03-13] VITALS: Ht 172.7 cm; Wt 85.7 kg
[~2019-03-13 19:59] MED LIST: ACET325 PO; AMLO5 PO; ATOR40TA PO; AZIT500 PO; Aspir 8181 MG PO; CEFP200 PO; CLOP75 PO; Dyazide 37.5-21 EACH PO; METO100 PO; METO50 PO; NAPR220 PO; TERA5 PO
[2019-03-13] MEDS ORDERED: TAMS.4ER PO (20:20)
[2019-03-13 20:22] LABS: BASOPHILS ABSOLUTE AUTO 0.04 K/mm3 (0.00-0.23); BASOPHILS PERCENT AUTO 1 % (0-2); EOSINOPHILS ABSOLUTE AUTO 0.26 K/mm3 (0.00-0.68); EOSINOPHILS PERCENT AUTO 4 % (0-6); Hematocrit 34.3 % (37.0-53.0); Hemoglobin 10.7 g/dL (13.5-17.5); IMMATURE GRAN ABSOLUTE AUTO 0.02 K/mm3 (0.00-0.10); IMMATURE GRAN PERCENT AUTO 0 % (0-1); LYMPHOCYTES ABSOLUTE AUTO 1.49 K/mm3 (0.84-5.20); LYMPHOCYTES PERCENT AUTO 20 % (21-46); MONOCYTES ABSOLUTE AUTO 0.71 K/mm3 (0.16-1.47); MONOCYTES PERCENT AUTO 10 % (4-13); Mean Corpuscular HGB Conc 31.2 g/dL (31.5-36.5); Mean Corpuscular Volume 99 fL (80-100); Mean Platelet Volume 9.4 fL (9.1-12.4); NEUTROPHILS PERCENT AUTO 66 % (41-73); Platelet Count 228 K/mm3 (150-400); RDW Coefficient Variation 13.2 % (11.7-14.2); RDW Standard Deviation 47.5 fL (35.1-46.3); Red Blood Cell Count 3.45 M/mm3 (4.30-5.90); White Blood Cell Count 7.32 K/mm3 (4.00-11.30)
[2019-03-13 20:43] LABS: Alanine Aminotransfer (ALT/SGP 17 U/L (12-78); Albumin, Blood 3.3 g/dL (3.4-5.0); Albumin/Globulin Ratio 0.8 (0.8-1.8); Alk Phos 91 U/L (50-136); Anion Gap 5 mmol/L (6-16); Aspartate Aminotrans (AST/SGOT 19 U/L (12-37); Bilirubin, Total 0.3 mg/dL (0.1-1.0); Blood Urea Nitrogen 39 mg/dL (8-24); CO2, Blood 27 mmol/L (21-32); Calcium, Blood 8.6 mg/dL (8.5-10.1); Chloride, Blood 107 mmol/L (98-108); Globulin, Blood 3.9 g/dL (2.2-4.0); Glomerular Filtration Rate 48 (60-); Glucose, Blood 134 mg/dL (70-99); Potassium, Blood 4.8 mmol/L (3.5-5.5); Sodium, Blood 139 mmol/L (136-145); Total Protein, Blood 7.2 g/dL (6.4-8.2); Troponin I <0.015 ng/mL (0.000-0.040)
[2019-03-13] MEDS ORDERED: CEPH500 PO (21:00)
== END 2019-03-13 21:11 | disposition home or self-care (01) ==
LOC: ER 19:59
PROVIDERS: Emergency Medicine
DX: R07.89 Other chest pain (principal); I10 Essential (primary) hypertension; Z87.01 Personal history of pneumonia (recurrent); Z87.891 Personal history of nicotine dependence
CPT/HCPCS: 80053; 84484; 85025; 93005; 93010; 99284-25

== ENCOUNTER 2020-07-09 19:17 | Emergency (ER) | payer OTHER, MEDICARE ==
[~2020-07-09] VITALS: Ht 170.2 cm; Wt 87.1 kg
[~2020-07-09 19:17] MED LIST changes: +CEPH500 PO; +TAMS.4ER PO
[2020-07-09 19:52] LABS: BASOPHILS ABSOLUTE AUTO 0.05 K/mm3 (0.00-0.23); BASOPHILS PERCENT AUTO 1 % (0-2); EOSINOPHILS ABSOLUTE AUTO 0.47 K/mm3 (0.00-0.68); EOSINOPHILS PERCENT AUTO 4 % (0-6); Hematocrit 36.7 % (37.0-53.0); Hemoglobin 11.9 g/dL (13.5-17.5); IMMATURE GRAN ABSOLUTE AUTO 0.02 K/mm3 (0.00-0.10); IMMATURE GRAN PERCENT AUTO 0 % (0-1); LYMPHOCYTES ABSOLUTE AUTO 2.99 K/mm3 (0.84-5.20); LYMPHOCYTES PERCENT AUTO 27 % (21-46); MONOCYTES ABSOLUTE AUTO 0.75 K/mm3 (0.16-1.47); MONOCYTES PERCENT AUTO 7 % (4-13); Mean Corpuscular HGB 32.1 pg (26.0-34.0); Mean Corpuscular HGB Conc 32.4 g/dL (31.5-36.5); Mean Corpuscular Volume 99 fL (80-100); Mean Platelet Volume 9.7 fL (9.1-12.4); NEUTROPHILS ABSOLUTE AUTO 6.67 K/mm3 (1.96-9.15); NEUTROPHILS PERCENT AUTO 61 % (41-73); Platelet Count 247 K/mm3 (150-400); RDW Coefficient Variation 12.7 % (11.7-14.2); RDW Standard Deviation 46.2 fL (35.1-46.3); Red Blood Cell Count 3.71 M/mm3 (4.30-5.90); White Blood Cell Count 10.95 K/mm3 (4.00-11.30)
[2020-07-09 20:05] LABS: Alanine Aminotransfer (ALT/SGP 27 U/L (12-78); Albumin, Blood 3.5 g/dL (3.4-5.0); Albumin/Globulin Ratio 0.9 (0.8-1.8); Alk Phos 98 U/L (50-136); Anion Gap 4 mmol/L (6-16); Aspartate Aminotrans (AST/SGOT 29 U/L (12-37); Bilirubin, Total 0.4 mg/dL (0.1-1.0); Blood Urea Nitrogen 33 mg/dL (8-24); Bun/Creatinine Ratio 26.2 (12.0-20.0); CO2, Blood 30 mmol/L (21-32); Calcium, Blood 9.1 mg/dL (8.5-10.1); Chloride, Blood 110 mmol/L (98-108); Creatinine, Blood 1.26 mg/dL (0.60-1.20); Globulin, Blood 3.9 g/dL (2.2-4.0); Glomerular Filtration Rate 58 (60-); Glucose, Blood 161 mg/dL (70-99); Potassium, Blood 4.3 mmol/L (3.5-5.5); Sodium, Blood 144 mmol/L (136-145); Total Protein, Blood 7.4 g/dL (6.4-8.2); Troponin I <0.015 ng/mL (0.000-0.040)
[2020-07-09] MEDS ORDERED: CLIN150 PO (20:38)
== END 2020-07-09 20:46 | disposition home or self-care (01) ==
LOC: ER 19:17
PROVIDERS: Emergency Medicine
DX: J69.0 Pneumonitis due to inhalation of food and vomit (principal); R55 Syncope and collapse; I10 Essential (primary) hypertension; I25.810 Atherosclerosis of coronary artery bypass graft(s) without angina pectoris; Z95.1 Presence of aortocoronary bypass graft; Z87.891 Personal history of nicotine dependence; Z79.82 Long term (current) use of aspirin; Z79.899 Other long term (current) drug therapy; Z79.02 Long term (current) use of antithrombotics/antiplatelets
CPT/HCPCS: 71045; 80053; 84484; 85025; 93005; 93010; 99284-25; A9270

== ENCOUNTER 2021-07-29 14:34 | Inpatient (IN) | payer OTHER, MEDICARE ==
[~2021-07-29] VITALS: Ht 177.8 cm; Wt 89.1 kg
[~2021-07-29 14:34] MED LIST changes: +CLIN150 PO
[2021-07-29] MEDS ORDERED: CARV25 PO (15:06)
[2021-07-29] MEDS ORDERED: HYDRA25 PO ×2 (15:07→19:57)
[2021-07-29] MEDS ORDERED: FAMO20 PO (15:07)
[2021-07-29 15:12] LABS: BASOPHILS ABSOLUTE AUTO 0.04 K/mm3 (0.00-0.23); BASOPHILS PERCENT AUTO 1 % (0-2); EOSINOPHILS ABSOLUTE AUTO 0.35 K/mm3 (0.00-0.68); EOSINOPHILS PERCENT AUTO 5 % (0-6); Hematocrit 30.9 % (37.0-53.0); Hemoglobin 9.6 g/dL (13.5-17.5); IMMATURE GRAN ABSOLUTE AUTO 0.02 K/mm3 (0.00-0.10); IMMATURE GRAN PERCENT AUTO 0 % (0-1); LYMPHOCYTES PERCENT AUTO 25 % (21-46); MONOCYTES ABSOLUTE AUTO 0.63 K/mm3 (0.16-1.47); MONOCYTES PERCENT AUTO 10 % (4-13); Mean Corpuscular HGB 31.4 pg (26.0-34.0); Mean Corpuscular HGB Conc 31.1 g/dL (31.5-36.5); Mean Corpuscular Volume 101 fL (80-100); NEUTROPHILS ABSOLUTE AUTO 3.81 K/mm3 (1.96-9.15); NEUTROPHILS PERCENT AUTO 59 % (41-73); Platelet Count 175 K/mm3 (150-400); RDW Coefficient Variation 13.2 % (11.7-14.2); RDW Standard Deviation 48.9 fL (35.1-46.3); Red Blood Cell Count 3.06 M/mm3 (4.30-5.90); White Blood Cell Count 6.45 K/mm3 (4.00-11.30)
[2021-07-29 15:28] LABS: Albumin, Blood 3.1 g/dL (3.4-5.0); Albumin/Globulin Ratio 0.9 (0.8-1.8); Bilirubin, Total 0.3 mg/dL (0.1-1.0); Bun/Creatinine Ratio 23.4 (12.0-20.0); Calcium, Blood 8.5 mg/dL (8.5-10.1); Creatinine, Blood 1.37 mg/dL (0.60-1.20); Globulin, Blood 3.5 g/dL (2.2-4.0); Total Protein, Blood 6.6 g/dL (6.4-8.2)
[2021-07-29 18:24] LABS: Hematocrit 31.5 % (37.0-53.0); Hemoglobin 9.9 g/dL (13.5-17.5)
[2021-07-29 18:38] LABS: CPK Creatine Kinase 93 U/L (39-308)
--- NOTE | 2021-07-29 19:42 | NUR ---
ADMISSION: PATIENT WAS RECIEVED FROM ER, BP IS ELEVATED BUT ASYMPTOMATIC NO HEAD ACHE OR BLURRED VISION. PATIENT IS ORIENTED TO ROOM AND CALL [facility].
[2021-07-30 02:28] LABS: Hematocrit 27.4 % (37.0-53.0); Hemoglobin 8.7 g/dL (13.5-17.5)
[2021-07-30 02:38] LABS: CPK Creatine Kinase 70 U/L (39-308)
--- NOTE | 2021-07-30 04:48 | NUR ---
SHIFT SUMMARY: PATIENT IS VOIDING LARGE AMTS. OF CLEAR YELLOW URINE. BP HAS IMPROVED 135/49 TELI REPORTS SR/SB 64/59. PATIENT REPORTS NO DIZZINESS WHEN UP. HGB IS NOW 8.7, NO S/S OF ACTIVE BLEED.
[2021-07-30 06:07] LABS: BASOPHILS ABSOLUTE AUTO 0.05 K/mm3 (0.00-0.23); BASOPHILS PERCENT AUTO 1 % (0-2); EOSINOPHILS ABSOLUTE AUTO 0.34 K/mm3 (0.00-0.68); EOSINOPHILS PERCENT AUTO 6 % (0-6); Hemoglobin 8.8 g/dL (13.5-17.5); IMMATURE GRAN ABSOLUTE AUTO 0.01 K/mm3 (0.00-0.10); IMMATURE GRAN PERCENT AUTO 0 % (0-1); LYMPHOCYTES ABSOLUTE AUTO 1.81 K/mm3 (0.84-5.20); LYMPHOCYTES PERCENT AUTO 33 % (21-46); MONOCYTES ABSOLUTE AUTO 0.66 K/mm3 (0.16-1.47); MONOCYTES PERCENT AUTO 12 % (4-13); Mean Corpuscular HGB 31.9 pg (26.0-34.0); Mean Corpuscular HGB Conc 31.4 g/dL (31.5-36.5); Mean Corpuscular Volume 101 fL (80-100); Mean Platelet Volume 9.9 fL (9.1-12.4); NEUTROPHILS ABSOLUTE AUTO 2.58 K/mm3 (1.96-9.15); NEUTROPHILS PERCENT AUTO 47 % (41-73); Platelet Count 164 K/mm3 (150-400); RDW Coefficient Variation 13.2 % (11.7-14.2); RDW Standard Deviation 48.6 fL (35.1-46.3); Red Blood Cell Count 2.76 M/mm3 (4.30-5.90); White Blood Cell Count 5.45 K/mm3 (4.00-11.30)
[2021-07-30 06:40] LABS: Albumin, Blood 2.6 g/dL (3.4-5.0); Albumin/Globulin Ratio 0.8 (0.8-1.8); Bilirubin, Total 0.5 mg/dL (0.1-1.0); Bun/Creatinine Ratio 21.9 (12.0-20.0); Calcium, Blood 8.2 mg/dL (8.5-10.1); Creatinine, Blood 1.46 mg/dL (0.60-1.20); Globulin, Blood 3.1 g/dL (2.2-4.0); Potassium, Blood 3.9 mmol/L (3.5-5.5); Total Protein, Blood 5.7 g/dL (6.4-8.2)
[2021-07-30 12:24] LABS: Hematocrit 32.4 % (37.0-53.0); Hemoglobin 9.9 g/dL (13.5-17.5)
--- NOTE | 2021-07-30 17:01 | NUR ---
SHIFT SUMMARY PT IS A&O, PLEASANT AND CO-OP. UP WITH SBA TO BTHRM AND TO SHOWER. ADMITTED FOR CHF EXAC; LASIX GIVEN. PT REPORTED SWELLING TO LE'S MUCH IMPROVED. DENIED SOB TODAY. DR BRADEN IN TO SEE PT THIS AFTERNOON. PT TO STAY AT LEAST ONE MORE DAY. PT'S BP REMAINS ELEVATED; SEE CHART. MEDS GIVEN PER EMAR. HERE AFTER LUNCH. PT'S DAUGHTER HERE LATE THIS AFTERNOON. DENIED NEEDS. RESTING QUIETLY WATCHING TV. NO C/O. CALL LT IN REACH.
--- NOTE | 2021-07-31 03:42 | NUR ---
SHIFT SUMMARY PT SLEPT WELL THIS EVENING. NO COMPLAINTS OF SOB, REPORTS FEELING SOME MILD SOB BUT OVERALL HUGE IMPROVEMENT IN HIS BREATHING. LUNG SOUNDS WITH SOME CRACKLES THROUGHOUT. BLOOD PRESSURE IMPROVED THIS EVENING FROM 180'S SYSTOLIC TO 150'S. TELEMETRY MONITORING READING SR 66. PT STATES THAT HE HOPES TO D/C HOME TODAY. VITAL SIGNS STABLE.
[2021-07-31 10:15] LABS: Albumin, Blood 2.8 g/dL (3.4-5.0); Anion Gap 5 mmol/L (6-16); Blood Urea Nitrogen 35 mg/dL (8-24); Bun/Creatinine Ratio 21.5 (12.0-20.0); CO2, Blood 34 mmol/L (21-32); Calcium, Blood 8.4 mg/dL (8.5-10.1); Chloride, Blood 105 mmol/L (98-108); Creatinine, Blood 1.63 mg/dL (0.60-1.20); Glomerular Filtration Rate 40 (60-); Glucose, Blood 197 mg/dL (70-99); Potassium, Blood 3.8 mmol/L (3.5-5.5); Sodium, Blood 144 mmol/L (136-145)
[2021-07-31] MEDS ORDERED: NIFE30ER PO (14:28)
[2021-07-31] MEDS ORDERED: FURO20 PO (14:29)
--- NOTE | 2021-07-31 15:27 | NUR ---
PT DISCHARGED FROM THE UNIT. IV REMOVED. DISCHARGE INSTRUCTIONS REVIEWED. MEDICATIONS FAXED TO [facility].
== END 2021-07-31 15:17 | disposition home or self-care (01) | DRG 291 ==
LOC: ER 14:34 → MEDS 14:35 → ENPENDDIS 07-31 13:26 → MEDS 07-31 15:17
PROVIDERS: Emergency Medicine; Family Medicine; ADMIT Internal Medicine
DX: I11.0 Hypertensive heart disease with heart failure (principal); I50.23 Acute on chronic systolic (congestive) heart failure; N17.9 Acute kidney failure, unspecified; I16.1 Hypertensive emergency; G47.33 Obstructive sleep apnea (adult) (pediatric); D53.9 Nutritional anemia, unspecified; H90.5 Unspecified sensorineural hearing loss; I48.91 Unspecified atrial fibrillation; E11.9 Type 2 diabetes mellitus without complications; N40.0 Benign prostatic hyperplasia without lower urinary tract symptoms; I50.9 Heart failure, unspecified; I25.10 Atherosclerotic heart disease of native coronary artery without angina pectoris; Z95.1 Presence of aortocoronary bypass graft; Z90.49 Acquired absence of other specified parts of digestive tract; Z87.01 Personal history of pneumonia (recurrent); Z87.442 Personal history of urinary calculi; Z79.02 Long term (current) use of antithrombotics/antiplatelets; Z79.899 Other long term (current) drug therapy
CPT/HCPCS: 36415; 71045; 80053; 80069; 82272; 82550; 83880; 84484; 85014; 85018; 85025; 86850; 86900; 86901; 93005; 93010; 93306; 96374; 96376; 99285-25; A9270; G0378; J1940

== ENCOUNTER 2021-09-30 17:48 | Observation (INO) | payer OTHER ==
[~2021-09-30] VITALS: Ht 182.9 cm; Wt 82.5 kg
[~2021-09-30 17:48] MED LIST changes: +CARV25 PO; +FAMO20 PO; +FURO20 PO; +HYDRA25 PO; +NIFE30ER PO
[2021-09-30 18:33] LABS: BASOPHILS ABSOLUTE AUTO 0.05 K/mm3 (0.00-0.23); BASOPHILS PERCENT AUTO 1 % (0-2); EOSINOPHILS ABSOLUTE AUTO 0.39 K/mm3 (0.00-0.68); EOSINOPHILS PERCENT AUTO 5 % (0-6); Hematocrit 35.1 % (37.0-53.0); Hemoglobin 11.2 g/dL (13.5-17.5); IMMATURE GRAN ABSOLUTE AUTO 0.01 K/mm3 (0.00-0.10); IMMATURE GRAN PERCENT AUTO 0 % (0-1); LYMPHOCYTES ABSOLUTE AUTO 3.73 K/mm3 (0.84-5.20); LYMPHOCYTES PERCENT AUTO 46 % (21-46); MONOCYTES ABSOLUTE AUTO 0.57 K/mm3 (0.16-1.47); MONOCYTES PERCENT AUTO 7 % (4-13); Mean Corpuscular HGB 30.9 pg (26.0-34.0); Mean Corpuscular HGB Conc 31.9 g/dL (31.5-36.5); Mean Corpuscular Volume 97 fL (80-100); Mean Platelet Volume 9.5 fL (9.1-12.4); NEUTROPHILS ABSOLUTE AUTO 3.43 K/mm3 (1.96-9.15); NEUTROPHILS PERCENT AUTO 42 % (41-73); Platelet Count 213 K/mm3 (150-400); RDW Standard Deviation 46.1 fL (35.1-46.3); Red Blood Cell Count 3.63 M/mm3 (4.30-5.90); White Blood Cell Count 8.18 K/mm3 (4.00-11.30)
[2021-09-30 19:02] LABS: Albumin, Blood 3.4 g/dL (3.4-5.0); Albumin/Globulin Ratio 0.9 (0.8-1.8); Bilirubin, Total 0.3 mg/dL (0.1-1.0); Bun/Creatinine Ratio 28.8 (12.0-20.0); Calcium, Blood 8.8 mg/dL (8.5-10.1); Creatinine, Blood 1.39 mg/dL (0.60-1.20); Globulin, Blood 3.6 g/dL (2.2-4.0)
--- NOTE | 2021-09-30 22:24 | NUR ---
ADMIT NOTE PT BROUGHT TO 355 FROM ER AT 2224. PT ADMITTED FOR CP AND SOB WHICH HE NO LONGER HAS AT THIS TIME. PT ON TELE, 60-70'S WITH PVC'S. PT TUCKED INTO BED, GIVEN CALL LIGHT, AND TOLD TO CALL IF HE NEEDS ANYTHING. WILL CONTINUE TO MONITOR.
--- NOTE | 2021-10-01 04:34 | NUR ---
SHIFT SUMMARY NO ACUTE CHANGES TO PT CONDITION. PT CONTINUES TO HAVE ZERO PAIN AND SOB. PT SLEEPING THROUGHOUT THE NIGHT. CALL LIGHT WITHIN REACH AND WILL CONTINUE TO MONITOR.
[2021-10-01 06:22] LABS: BASOPHILS ABSOLUTE AUTO 0.05 K/mm3 (0.00-0.23); BASOPHILS PERCENT AUTO 1 % (0-2); EOSINOPHILS ABSOLUTE AUTO 0.32 K/mm3 (0.00-0.68); EOSINOPHILS PERCENT AUTO 5 % (0-6); Hematocrit 33.1 % (37.0-53.0); Hemoglobin 10.7 g/dL (13.5-17.5); IMMATURE GRAN PERCENT AUTO 0 % (0-1); LYMPHOCYTES ABSOLUTE AUTO 2.57 K/mm3 (0.84-5.20); LYMPHOCYTES PERCENT AUTO 42 % (21-46); MONOCYTES PERCENT AUTO 10 % (4-13); Mean Corpuscular HGB 31.3 pg (26.0-34.0); Mean Corpuscular HGB Conc 32.3 g/dL (31.5-36.5); Mean Corpuscular Volume 97 fL (80-100); Mean Platelet Volume 9.3 fL (9.1-12.4); NEUTROPHILS ABSOLUTE AUTO 2.52 K/mm3 (1.96-9.15); NEUTROPHILS PERCENT AUTO 42 % (41-73); Platelet Count 179 K/mm3 (150-400); RDW Standard Deviation 46.3 fL (35.1-46.3); Red Blood Cell Count 3.42 M/mm3 (4.30-5.90); White Blood Cell Count 6.06 K/mm3 (4.00-11.30)
[2021-10-01 06:36] LABS: Bun/Creatinine Ratio 25.5 (12.0-20.0); Calcium, Blood 8.7 mg/dL (8.5-10.1); Creatinine, Blood 1.41 mg/dL (0.60-1.20); Potassium, Blood 3.9 mmol/L (3.5-5.5)
--- NOTE | 2021-10-01 15:25 | NUR ---
PT WAS HAVING STRESS PORTION OF NUCLEAR MED TEST. PT RECEIVED LEXISCAN 0.4 MG IV AND BECAME BRADYCARDIC IN THE 30'S. PT REPORTED FEELING LIGHTHEADED AND DIAPHORETIC. PT WENT IN TO ASYSTOLE AND BECAME UNRESPONSIVE, CODE WAS CALLED. PT REGAINED CONSCIOUSNESS W/I 15 SECONDS AND WAS ANSWERING QUESTIONS. DR KNOWLES CAME TO PT'S BEDSIDE TO REVIEW EKG TRACINGS AND EVALUATE PT. LEELEE BURKS WAS UPDATED ON PT STATUS.
--- NOTE | 2021-10-01 17:23 | NUR ---
SHIFT SUMMARY PT IS A FULL CODE, AOX4. PT IS ON TELE WITH SR [id number]. PT WAS UNDERGOING A RESTING STRESS TEST AND GIVEN LIXISCAN 0.4MG IV. HE BECAME BRADYCARDIAC-IN THE 30'S. HE WENT INTO ASYSTOLE AND BECAME UNRESPONSIVE, A CODE WAS CALLED. HE SOON REGAINED CONSCIOUSNESS WITHIN [address] KNOWLES ARRIVED TO EVALUATE AND REVIEW HIS EKG TRACINGS. HE WAS SENT FOR AN ECHO SHORTLY AFTER AND HAS ALREADY RETURNED. HIS AND DAUGHER ARE HERE VISITING. HE IS VERY PLEASANT AND FOLLOWS DIRECTIONS. HE IS INDEPENDENT BUT A BIT WEAK NOW AFER THE INCIDENT EARLIER. WILL CONTINUE TO MONITOR AND ASSESS UNTIL NOC SHIFT ARRIVES. CALL LIGHT WITHIN REACH.
--- NOTE | 2021-10-02 02:47 | NUR ---
0100 PATIENT STAES HE FEELS WEAK, LIKE HIS BLOOD PRESSURE IS LOW. BP CHECKED 203/68. PRN APRESOLINE 25MG PO ADMIN. RECHECK PATIENT AT 0200 PATIENT STATES HE FEELS THE SAME. BP 198/71. PRN TRANDATE IVP 10MG ADMIN. DR. DEY CALLED. PATIENT GIVEN NITRO 4MG SL. EKG COMPLETED. LAB WORK ORDERED. AWAITING LAB AT THIS TIME. PATIENT ALERT, ABLE TO RESPOND TO ALL QUESTIONS. PATIENT STATES PRESSURE BETTER BUT NOT COMPLETELY GONE WITH FIRST DOSE OF NITRO. SECOND DOSE 4MG NITRO ADMIN.
[2021-10-02 03:13] LABS: BASOPHILS ABSOLUTE AUTO 0.06 K/mm3 (0.00-0.23); BASOPHILS PERCENT AUTO 1 % (0-2); EOSINOPHILS ABSOLUTE AUTO 0.37 K/mm3 (0.00-0.68); EOSINOPHILS PERCENT AUTO 5 % (0-6); Hematocrit 35.4 % (37.0-53.0); Hemoglobin 11.4 g/dL (13.5-17.5); IMMATURE GRAN ABSOLUTE AUTO 0.01 K/mm3 (0.00-0.10); IMMATURE GRAN PERCENT AUTO 0 % (0-1); LYMPHOCYTES ABSOLUTE AUTO 2.98 K/mm3 (0.84-5.20); LYMPHOCYTES PERCENT AUTO 38 % (21-46); MONOCYTES ABSOLUTE AUTO 0.65 K/mm3 (0.16-1.47); MONOCYTES PERCENT AUTO 8 % (4-13); Mean Corpuscular HGB 31.1 pg (26.0-34.0); Mean Corpuscular HGB Conc 32.2 g/dL (31.5-36.5); Mean Corpuscular Volume 97 fL (80-100); Mean Platelet Volume 9.3 fL (9.1-12.4); NEUTROPHILS ABSOLUTE AUTO 3.74 K/mm3 (1.96-9.15); NEUTROPHILS PERCENT AUTO 48 % (41-73); Platelet Count 202 K/mm3 (150-400); RDW Coefficient Variation 12.8 % (11.7-14.2); RDW Standard Deviation 46.6 fL (35.1-46.3); Red Blood Cell Count 3.66 M/mm3 (4.30-5.90); White Blood Cell Count 7.81 K/mm3 (4.00-11.30)
[2021-10-02 03:58] LABS: Albumin, Blood 3.2 g/dL (3.4-5.0); Albumin/Globulin Ratio 0.9 (0.8-1.8); Bilirubin, Total 0.4 mg/dL (0.1-1.0); Bun/Creatinine Ratio 25.3 (12.0-20.0); Calcium, Blood 8.8 mg/dL (8.5-10.1); Creatinine, Blood 1.62 mg/dL (0.60-1.20); Globulin, Blood 3.5 g/dL (2.2-4.0); Potassium, Blood 4.1 mmol/L (3.5-5.5); Total Protein, Blood 6.7 g/dL (6.4-8.2)
--- NOTE | 2021-10-02 04:06 | NUR ---
Patient with chest pain overnight. See previous note. Patient lab values not concerning with the exception that his creatinine is increasing. patient states he feels back to normal at this time. Patient up in bathroom voiding per urinal. Skin inspection reveals no acute skin issues. patient alert and understanding of all tests and medications during the night. All questions answered.
--- NOTE | 2021-10-02 11:58 | NUR ---
CALL PLACED TO PATIENTS WILLI TO UPDATE HER REGARDING PLAN OF CARE. HER QUESTIONS WERE ANSWERED. WILL CONTINUE TO MONITOR.
--- NOTE | 2021-10-02 19:21 | NUR ---
SHIFT SUMMARY PT REMAINS IN THE HOSPITAL R/T CHEST PAIN EPISODE LAST NIGHT. PT GIVEN IMDUR AND LASIX TODAY,NO COMPLAINT OF CHEST PAIN. PT'S FAMILY EXPRESSED CONCERN THAT PT HAS FAINTED WHEN HIS BLOOD PRESSURE DROPS TO LOW; FAMILY STATED THAT THE PATIENT'S HUMAN RESOURCES OPERATIONS COORDINATOR STATED HIS GOAL SBP SHOUD BE 150-160, DR. RAYA NOTIFIED. PT'S SBP HAS BEEN <140 THIS AFTERNOON AND PT HAS TOLERATED WELL, NO DIZZINESS OR LIGHTHEADEDNESS UPON STANDING. PT DECLINED HIS COREG THIS AFTERNOON R/T SBP <130. ORTHOSTATIC VS COMPLETED ON BUE THIS EVENING; PT AND FAMILY REPORT SIGNIFICANT DIFFERENCE BETWEEN R AND L ARMS AT BASELINE. PT IS A SBA FOR SAFETY WHEN OOB. REPORT GIVEN TO JOEL MCKOY.
--- NOTE | 2021-10-03 04:28 | NUR ---
Patient with VSS on RA overnight. No c/o chest pain overnight. Patient up indendently to bathroom. Able to position himself independently in the bed.
[2021-10-03 05:13] LABS: BASOPHILS ABSOLUTE AUTO 0.03 K/mm3 (0.00-0.23); BASOPHILS PERCENT AUTO 0 % (0-2); EOSINOPHILS ABSOLUTE AUTO 0.37 K/mm3 (0.00-0.68); EOSINOPHILS PERCENT AUTO 5 % (0-6); Hematocrit 31.1 % (37.0-53.0); Hemoglobin 9.9 g/dL (13.5-17.5); IMMATURE GRAN ABSOLUTE AUTO 0.01 K/mm3 (0.00-0.10); IMMATURE GRAN PERCENT AUTO 0 % (0-1); LYMPHOCYTES PERCENT AUTO 38 % (21-46); MONOCYTES ABSOLUTE AUTO 0.74 K/mm3 (0.16-1.47); MONOCYTES PERCENT AUTO 10 % (4-13); Mean Corpuscular HGB 30.9 pg (26.0-34.0); Mean Corpuscular HGB Conc 31.8 g/dL (31.5-36.5); Mean Corpuscular Volume 97 fL (80-100); Mean Platelet Volume 9.8 fL (9.1-12.4); NEUTROPHILS PERCENT AUTO 47 % (41-73); Platelet Count 180 K/mm3 (150-400); RDW Standard Deviation 46.5 fL (35.1-46.3); White Blood Cell Count 7.65 K/mm3 (4.00-11.30)
[2021-10-03 05:34] LABS: Bun/Creatinine Ratio 23.6 (12.0-20.0); Calcium, Blood 8.6 mg/dL (8.5-10.1); Creatinine, Blood 1.78 mg/dL (0.60-1.20); Potassium, Blood 4.1 mmol/L (3.5-5.5)
[2021-10-03] MEDS ORDERED: Isosorbide Mono30 MG PO (13:29)
--- NOTE | 2021-10-03 14:59 | NUR ---
DISCHARGE SUMMARY: PATIENT'S IV AND TELEMETRY WERE DISCONTINUED. REVIEWED DISCHARGE PAPERWORK WITH PATIENT AND FAMILY. PATIENT WAS EDUCATED ABOUT THE IMPORTANCE OF TAKING HIS BLOOD PRESSURE AND HEARTRATE BEFORE TAKING HIS MEDICATION. FAMILY REQUESTED THAT WE TAKE HIS BLOOD PRESSURE ONCE MORE BEFORE BEING DISCHARGED. THE PATIENT'S BP WAS IN THE 120s SYSTOLIC WHEN TAKEN ON THE LEFT ARM. PATIENT WAS WHEELED OUT BY WHEELCHAIR AND WAS ABLE TO GET IN CAR WITH NO PROBLEMS.
== END 2021-10-03 14:02 | disposition home or self-care (01) ==
LOC: ER 17:48 → MEDS 17:49
PROVIDERS: Emergency Medicine; Internal Medicine; ADMIT Internal Medicine
DX: R07.89 Other chest pain (principal); I13.0 Hypertensive heart and chronic kidney disease with heart failure and stage 1 through stage 4 chronic kidney disease, or unspecified chronic kidney disease; I50.42 Chronic combined systolic (congestive) and diastolic (congestive) heart failure; N18.31 Chronic kidney disease, stage 3a; E11.22 Type 2 diabetes mellitus with diabetic chronic kidney disease; Z95.1 Presence of aortocoronary bypass graft; E78.2 Mixed hyperlipidemia; G47.30 Sleep apnea, unspecified; I35.0 Nonrheumatic aortic (valve) stenosis; Z79.82 Long term (current) use of aspirin; Z79.899 Other long term (current) drug therapy
CPT/HCPCS: 36415; 71046; 78452; 80048; 80053; 83880; 84484; 85025; 93005; 93010; 93017; 93308; 93321; 97161; 99285-25; A9270; A9500; J0280; J1650; J1940; J2785

== ENCOUNTER → 2021-10-11 | Outpatient (CLI) | payer OTHER ==
[~2021-10-11] MED LIST changes: +Isosorbide Mono30 MG PO
[2021-10-12 13:48] LABS: Stool Occult Bld Immuno 1 Positive (NEGATIVE)
== END | disposition home or self-care (01) ==
LOC: LAB SHORT 07:30
PROVIDERS: Physician Assistant
DX: D64.9 Anemia, unspecified (principal)
CPT/HCPCS: 82274

== ENCOUNTER → 2022-06-30 | Outpatient (CLI) | payer OTHER ==
[2022-06-30 18:40] LABS: Percent Saturation 30.5 % (20.0-50.0)
== END ==
LOC: LAB SHORT 16:55
PROVIDERS: Internal Medicine Hematology & Oncology
DX: D50.0 Iron deficiency anemia secondary to blood loss (chronic) (principal)
CPT/HCPCS: 82728; 83540; 83550

== ENCOUNTER → 2023-01-04 | Outpatient (CLI) | payer MEDICARE ==
[2023-01-04 15:59] LABS: BASOPHILS ABSOLUTE AUTO 0.05 K/mm3 (0.00-0.23); BASOPHILS PERCENT AUTO 1 % (0-2); EOSINOPHILS ABSOLUTE AUTO 0.43 K/mm3 (0.00-0.68); EOSINOPHILS PERCENT AUTO 6 % (0-6); Hematocrit 32.5 % (37.0-53.0); Hemoglobin 10.5 g/dL (13.5-17.5); IMMATURE GRAN PERCENT AUTO 0 % (0-1); LYMPHOCYTES ABSOLUTE AUTO 3.44 K/mm3 (0.84-5.20); LYMPHOCYTES PERCENT AUTO 50 % (21-46); MONOCYTES ABSOLUTE AUTO 0.44 K/mm3 (0.16-1.47); MONOCYTES PERCENT AUTO 6 % (4-13); Mean Corpuscular HGB 32.4 pg (26.0-34.0); Mean Corpuscular HGB Conc 32.3 g/dL (31.5-36.5); Mean Corpuscular Volume 100 fL (80-100); Mean Platelet Volume 11.4 fL (9.1-12.4); NEUTROPHILS PERCENT AUTO 37 % (41-73); Platelet Count 207 K/mm3 (150-400); RDW Coefficient Variation 13.2 % (11.7-14.2); RDW Standard Deviation 49.1 fL (35.1-46.3); Red Blood Cell Count 3.24 M/mm3 (4.30-5.90); White Blood Cell Count 6.86 K/mm3 (4.00-11.30)
[2023-01-04 16:54] LABS: Alanine Aminotransfer (ALT/SGP 21 U/L (12-78); Albumin, Blood 3.6 g/dL (3.4-5.0); Alk Phos 75 U/L (50-136); Anion Gap 3 mmol/L (6-16); Aspartate Aminotrans (AST/SGOT 20 U/L (12-37); Bilirubin, Total 0.6 mg/dL (0.1-1.0); Blood Urea Nitrogen 41 mg/dL (8-24); CHOL/HDL RATIO 2.4; CO2, Blood 29 mmol/L (21-32); Calcium, Blood 8.8 mg/dL (8.5-10.1); Chloride, Blood 110 mmol/L (98-108); Cholesterol 137 mg/dL (50-200); Ferritin, Serum 288 ng/mL (26-388); Globulin, Blood 3.7 g/dL (2.2-4.0); Glucose, Blood 97 mg/dL (70-99); HDL Cholesterol 58 mg/dL (>39); Iron Serum 62 ug/dL (65-175); LDL/HDL RATIO 1.2; Low Density Lipoprotein Chol 68 mg/dL (0-110); Potassium, Blood 4.4 mmol/L (3.5-5.5); Sodium, Blood 142 mmol/L (136-145); Total Protein, Blood 7.3 g/dL (6.4-8.2); Triglycerides 53 mg/dL (30-160); Very Low Density Lipoprot Chol 10 mg/dL (6-32)
[2023-01-04 16:58] LABS: Bun/Creatinine Ratio 28.7 (12.0-20.0); Creatinine, Blood 1.43 mg/dL (0.60-1.20); Glomerular Filtration Rate 48 (60-); Percent Saturation 30.5 % (20.0-50.0); Total Iron Binding Capacity 203 ug/dL (250-450)
== END ==
LOC: LAB SHORT 09:53 → LAB 09:53
PROVIDERS: Family Medicine
DX: Z12.5 Encounter for screening for malignant neoplasm of prostate (principal); D50.9 Iron deficiency anemia, unspecified; E11.8 Type 2 diabetes mellitus with unspecified complications; E78.5 Hyperlipidemia, unspecified; I10 Essential (primary) hypertension
CPT/HCPCS: 80053; 80061; 82728; 83036; 83540; 83550; 85025; G0103

== ENCOUNTER 2024-02-10 20:06 | Inpatient (IN) | payer OTHER, MEDICARE ==
[~2024-02-10] VITALS: Ht 167.6 cm; Wt 70.7 kg
[~2024-02-10 20:06] MED LIST changes: -CARV25 PO; +Carvedilol12.5 MG PO; +ISOSORBIDE MONO60 MG PO; -Isosorbide Mono30 MG PO
[2024-02-10] MEDS ORDERED: Ipratropium Bromide INH 0.02% 0.5 mg/2.5ML Vial INH SCH (20:35)
[2024-02-10] MEDS ORDERED: Albuterol 2.5 MG/3 ML VIAL INH SCH (20:35)
[2024-02-10 20:40] LABS: BASOPHILS ABSOLUTE AUTO 0.06 K/mm3 (0.00-0.23); BASOPHILS PERCENT AUTO 1 % (0-2); EOSINOPHILS PERCENT AUTO 5 % (0-6); Hematocrit 34.5 % (37.0-53.0); IMMATURE GRAN ABSOLUTE AUTO 0.03 K/mm3 (0.00-0.10); IMMATURE GRAN PERCENT AUTO 0 % (0-1); LYMPHOCYTES ABSOLUTE AUTO 1.84 K/mm3 (0.84-5.20); LYMPHOCYTES PERCENT AUTO 21 % (21-46); MONOCYTES ABSOLUTE AUTO 0.76 K/mm3 (0.16-1.47); MONOCYTES PERCENT AUTO 9 % (4-13); Mean Corpuscular HGB 31.4 pg (26.0-34.0); Mean Corpuscular HGB Conc 31.9 g/dL (31.5-36.5); Mean Corpuscular Volume 99 fL (80-100); Mean Platelet Volume 9.8 fL (9.1-12.4); NEUTROPHILS PERCENT AUTO 65 % (41-73); Platelet Count 171 K/mm3 (150-400); RDW Coefficient Variation 15.4 % (11.7-14.2); RDW Standard Deviation 55.5 fL (35.1-46.3); White Blood Cell Count 8.89 K/mm3 (4.00-11.30)
[2024-02-10 20:59] LABS: Albumin, Blood 3.8 g/dL (3.4-5.0); Bilirubin, Total 0.5 mg/dL (0.1-1.0); Bun/Creatinine Ratio 32.1 (12.0-20.0); Calcium, Blood 8.8 mg/dL (8.5-10.1); Creatinine, Blood 1.65 mg/dL (0.60-1.20); Globulin, Blood 3.9 g/dL (2.2-4.0); Potassium, Blood 4.4 mmol/L (3.5-5.5); Total Protein, Blood 7.7 g/dL (6.4-8.2)
[2024-02-10 21:47] LABS: International Normalized Ratio 1.03
[2024-02-10] MEDS ORDERED: Furosemide 10 MG / ML 2ML Vial IV ONE (21:55)
[2024-02-10] MEDS ORDERED: Aspirin 81 MG Chew PO ONE (22:00)
[2024-02-10] MEDS ORDERED: Acetaminophen 500 MG Tab PO ONE (22:25)
[2024-02-11] MEDS ORDERED: Magnesium Hydroxide Conc 10 ML UDC PO PRN (02:30)
[2024-02-11] MEDS ORDERED: Acetaminophen 325 MG TABLET PO PRN (02:30)
[2024-02-11] MEDS ORDERED: Bisacodyl 10 MG Supp PR PRN (02:30)
[2024-02-11] MEDS ORDERED: FLU VACC TS2024-25(6MOS UP)/PF 45 MCG/0.5 ML SYRINGE IM SCH (02:35)
[2024-02-11 04:28] VITALS: BP 153/72
[2024-02-11] MEDS ORDERED: Nitroglycerin 0.4 MG SUBL SL PRN (04:45)
[2024-02-11] MEDS ORDERED: FentaNYL Citrate 50 MCG/ML 2 ML Injection IV PRN (04:50)
[2024-02-11] MEDS ORDERED: LUBRICANT BOTHEYES (05:12)
[2024-02-11] MEDS ORDERED: LIDO700A20 TOP (05:17)
[2024-02-11] MEDS ORDERED: Clopidogrel Bisulfate 75 MG Tab PO ONE (05:20)
[2024-02-11] MEDS ORDERED: Vitamin D1000 UNI1 PO (05:21)
[2024-02-11] MEDS ORDERED: FERSU300 PO (05:22)
[2024-02-11] MEDS ORDERED: PROCRIT40000 UNIT SC (05:24)
[2024-02-11 05:47] LABS: BASOPHILS ABSOLUTE AUTO 0.02 K/mm3 (0.00-0.23); BASOPHILS PERCENT AUTO 0 % (0-2); EOSINOPHILS ABSOLUTE AUTO 0.17 K/mm3 (0.00-0.68); EOSINOPHILS PERCENT AUTO 3 % (0-6); Hematocrit 32.4 % (37.0-53.0); Hemoglobin 10.2 g/dL (13.5-17.5); IMMATURE GRAN ABSOLUTE AUTO 0.02 K/mm3 (0.00-0.10); IMMATURE GRAN PERCENT AUTO 0 % (0-1); LYMPHOCYTES ABSOLUTE AUTO 1.24 K/mm3 (0.84-5.20); LYMPHOCYTES PERCENT AUTO 23 % (21-46); MONOCYTES ABSOLUTE AUTO 0.56 K/mm3 (0.16-1.47); MONOCYTES PERCENT AUTO 10 % (4-13); Mean Corpuscular HGB 31.3 pg (26.0-34.0); Mean Corpuscular HGB Conc 31.5 g/dL (31.5-36.5); Mean Corpuscular Volume 99 fL (80-100); Mean Platelet Volume 10.4 fL (9.1-12.4); NEUTROPHILS ABSOLUTE AUTO 3.51 K/mm3 (1.96-9.15); NEUTROPHILS PERCENT AUTO 64 % (41-73); Platelet Count 151 K/mm3 (150-400); RDW Coefficient Variation 15.5 % (11.7-14.2); RDW Standard Deviation 56.7 fL (35.1-46.3); Red Blood Cell Count 3.26 M/mm3 (4.30-5.90); White Blood Cell Count 5.52 K/mm3 (4.00-11.30)
[2024-02-11 06:03] LABS: Anti-Xa UFH, PHA Monitoring <0.10 IU/mL
[2024-02-11 06:14] VITALS: BP 169/72
[2024-02-11] MEDS ORDERED: Heparin Sodium,Porcine/0.5 NS 500 ML IV SCH (06:15)
--- NOTE | 2024-02-11 06:15 | NUR ---
TRANSFER REPORT RECEIVED FROM MEDICAL NURSE. PATIENT ARRIVES TO PCU 08 ON MEDICAL FLOOR BED. PATIENT ALERT, ORIENTED x4. CAHUILLA, HEARING AIDES WITH PATIENT. ON TELE, SINUS RHYTHM 67. BP STABLE. AFEBRILE. ON RA WITH SPO2 >90%. PATIENT DENIES CURRENT CHEST PAIN. LUNG SOUNDS COARSE IN UPPER LOBES, DIMINISHED WITH FINE CRACKLES IN THE BASES. PER PATIENT, HE WAS USING URINAL ON MEDICAL FLOOR. NEW URINAL PROVIDED TO PATIENT. HEPARIN TO BE STARTED PER EMAR. PATIENT ORIENTED TO PCU ROOM AND CALL LIGHT SYSTEM.
[2024-02-11 06:21] LABS: Albumin, Blood 3.4 g/dL (3.4-5.0); Albumin/Globulin Ratio 0.9 (0.8-1.8); Bilirubin, Total 0.3 mg/dL (0.1-1.0); Bun/Creatinine Ratio 31.7 (12.0-20.0); Creatinine, Blood 1.83 mg/dL (0.60-1.20); Globulin, Blood 3.7 g/dL (2.2-4.0); Potassium, Blood 4.2 mmol/L (3.5-5.5); Total Protein, Blood 7.1 g/dL (6.4-8.2)
[2024-02-11] MEDS ORDERED: HydrALAZINE HCl 20 MG / ML 1ML Vial IV PRN (07:10)
[2024-02-11 07:15] VITALS: BP 149/80
[2024-02-11] MEDS ORDERED: Carvedilol 6.25 MG Tab PO SCH (08:00)
--- NOTE | 2024-02-11 08:55 | NUR ---
Straight cath patient per RN as bladder scan showed >800 ml urine. Used sterile technique and intermitent cath kit with 16Fr coude. Drained 750 ml's clear yellow urine and notified RN. Samplesent to lab for UA per protocol.
[2024-02-11] MEDS ORDERED: Enoxaparin 40 MG/0.4 ML SYR SC SCH (09:00)
[2024-02-11] MEDS ORDERED: Furosemide 10 MG/ML 4ML Vial IV SCH (09:00)
[2024-02-11] MEDS ORDERED: Sennosides 8.6 MG Tab PO SCH (09:00)
[2024-02-11] MEDS ORDERED: NIFEdipine 60 MG TabCR PO SCH (09:00)
[2024-02-11] MEDS ORDERED: Aspirin 325 MG TabEC PO SCH (09:00)
[2024-02-11] MEDS ORDERED: Docusate Sodium 100 MG Cap PO SCH (09:00)
[2024-02-11] MEDS ORDERED: Clopidogrel Bisulfate 75 MG Tab PO SCH (09:00)
[2024-02-11] MEDS ORDERED: Aspirin 81 MG TabEC PO SCH (09:00)
[2024-02-11] MEDS ORDERED: Isosorbide Mononitrate 60 MG TABCR PO SCH (09:00)
[2024-02-11] MEDS ORDERED: Famotidine 20 MG Tab PO SCH (09:00)
[2024-02-11 09:42] LABS: Source, Urine Straight Cath
[2024-02-11 09:59] LABS: Appearance, Urine Clear (Clear); Bilirubin, Urine Neg (Neg); Blood, Urine Neg (Neg); Color, Urine Yellow (P-Yellow); Glucose Qualitative, Urine Neg (Neg); Ketones, Urine Neg (Neg); Leukocyte Esterase, Urine Neg (Neg); Nitrite, Urine Neg (Neg); Protein, Urine 3+ (Neg); Specific Gravity, Urine 1.015 (1.003-1.022); Urobilinogen, Urine NORM (Normal)
[2024-02-11 10:56] VITALS: BP 106/50
[2024-02-11 11:58] LABS: Bacteria Rare /hpf; Hyaline Casts 0-2 /lpf (0-2); Red Blood Cells, Urine 0-2 /hpf (0-2); Squamous Epithelial Cells Rare /hpf (Few); White Blood Cells, Urine 0-2 /hpf (0-5)
[2024-02-11 11:59] LABS: Amorphous Light (0-Heavy)
[2024-02-11] MEDS ORDERED: CefTRIAXone Sodium 1,000 MG in NS 100 ML IV SCH (13:00)
[2024-02-11] MEDS ORDERED: Azithromycin 250 MG Tab PO SCH (13:00)
[2024-02-11] MEDS ORDERED: Dose Adjust by Pharmacy XX STA ×2 (13:10→19:55)
[2024-02-11 14:31] LABS: Adenovirus Not Detected (NOT DETECT); Bordetella pertussis Not Detected (NOT DETECT); Chlamydophila pneumoniae Not Detected (NOT DETECT); Coronavirus 229E Not Detected (NOT DETECT); Coronavirus HKU1 Not Detected (NOT DETECT); Coronavirus NL63 Not Detected (NOT DETECT); Coronavirus OC43 Not Detected (NOT DETECT); Human Metapneumovirus Not Detected (NOT DETECT); Human Rhinovirus/Enterovirus Not Detected (NOT DETECT); Influenza A/2009-H1 Not Detected (NOT DETECT); Influenza A/H1 Not Detected (NOT DETECT); Influenza A/H3 Not Detected (NOT DETECT); Influenza B Not Detected (NOT DETECT); Mycoplasma pneumoniae Not Detected (NOT DETECT); Parainfluenza Virus 1 Not Detected (NOT DETECT); Parainfluenza Virus 2 Not Detected (NOT DETECT); Parainfluenza Virus 3 Not Detected (NOT DETECT); Parainfluenza Virus 4 Not Detected (NOT DETECT); Respiratory Syncytial Virus Not Detected (NOT DETECT); SARS-Cov-2 (COVID-19), BioFire Detected (NOT DETECT)
[2024-02-11] MEDS ORDERED: Dexamethasone Sodium Phosphate 4 MG/ML 1ML Vial IV SCH (15:00)
[2024-02-11 15:54] VITALS: BP 125/62
--- NOTE | 2024-02-11 17:18 | NUR ---
SHIFT SUMMARY: PT ALERT AND ORIENTED X3, ABLE TO FOLLOW COMMANDS AND MAKE NEEDS KNOWN. FORGETFUL AT TIMES, BED ALARM FOR SAFETY. UTE. BP AND HR STABLE. AFEBRILE SPO2 >94% ON ROOM AIR. LUNG SOUNDS DIM W/ CRACKLES. RESPIRATIONS EVEN AND UNLABORED. PT WITH POSITIVE RESP PANEL THIS SHIFT, DROPLET ISOLATION ORDERED. PULSES STRONG AND EQUAL THROUGHOUT. ABD SOFT, NON TENDER, BOWEL SOUNDS +. PT DENIES CP/PRESSURE THROUGHOUT THE DAY. CARDIOLOGY CONSULTED THIS AM, POSSIBLE ANGIOGRAM IN 02/12/24. TROPONIN TRENDING, CARDIOLOGY UPDATED. HEPARING GTT. PT SBA TO AND FROM BATHROOM. STRAIGHT CATH X1, URINIARY OUTPUT >800ML. ONE BM. FAMILY AT BEDSIDE THIS SHIFT, UPDATED ON PT PLAN OF CARE. BED IN LOW, CALL LIGHT IN REACH, WILL REPORT TO ONCOMING RN.
[2024-02-11 20:04] VITALS: BP 114/58
[2024-02-11] MEDS ORDERED: Tamsulosin HCl 0.4 MG Cap PO SCH (21:00)
[2024-02-11] MEDS ORDERED: Atorvastatin 40 MG Tab PO SCH (21:00)
[2024-02-11] MEDS ORDERED: HydrALAZINE HCl 25 MG Tab PO SCH (21:00)
[2024-02-12] VITALS (7 sets, daily range): BP systolic 107–158; BP diastolic 45–72
[2024-02-12 04:26] LABS: Hematocrit 29.1 % (37.0-53.0); Hemoglobin 9.5 g/dL (13.5-17.5); Mean Platelet Volume 10.8 fL (9.1-12.4); Platelet Count 145 K/mm3 (150-400)
[2024-02-12] MEDS ORDERED: Clarify Drug Order XX ONE (05:00)
--- NOTE | 2024-02-12 06:34 | NUR ---
PT STABLE THROUGHOUT THE SHIFT. BP AND O2 SAT ON ROOM AIR WNL. PT DID HAVE BRADYCARDIA WHILE SLEEPING BUT ASYMPTOMATIC. PT AOX2-3 CALM AND COOPERATIVE. PT WAS ABLE TO MAKE NEEDS KNOWN AND USED THE CALL LIGHT. PT DID BECOME ENTANGLED WITH HIS IV LINE AND CORDS WHILE SLEEPING AND SAT UP SETTING OFF BED ALARM. PT DID NOT ATTEMPT TO GET OOB. PT HAS BEEN ABLE TO URINATE TONIGHT W/O DIFFICULTY. PT TOLERATING HEPARIN GTT W/O ISSUE, NO S/S BLEEDING/HEMATOMA. PT NO PO INTAKE OVER NIGHT, POTENTIAL ANGIO PROCEDURE LATER.
[2024-02-12 07:39] LABS: BASOPHILS ABSOLUTE AUTO 0.01 K/mm3 (0.00-0.23); BASOPHILS PERCENT AUTO 0 % (0-2); EOSINOPHILS PERCENT AUTO 0 % (0-6); Hematocrit 28.5 % (37.0-53.0); Hemoglobin 9.3 g/dL (13.5-17.5); IMMATURE GRAN ABSOLUTE AUTO 0.01 K/mm3 (0.00-0.10); IMMATURE GRAN PERCENT AUTO 0 % (0-1); LYMPHOCYTES ABSOLUTE AUTO 1.77 K/mm3 (0.84-5.20); LYMPHOCYTES PERCENT AUTO 30 % (21-46); MONOCYTES ABSOLUTE AUTO 0.48 K/mm3 (0.16-1.47); MONOCYTES PERCENT AUTO 8 % (4-13); Mean Corpuscular HGB 31.5 pg (26.0-34.0); Mean Corpuscular HGB Conc 32.6 g/dL (31.5-36.5); Mean Corpuscular Volume 97 fL (80-100); NEUTROPHILS ABSOLUTE AUTO 3.69 K/mm3 (1.96-9.15); NEUTROPHILS PERCENT AUTO 62 % (41-73); Platelet Count 147 K/mm3 (150-400); RDW Coefficient Variation 15.5 % (11.7-14.2); RDW Standard Deviation 54.9 fL (35.1-46.3); Red Blood Cell Count 2.95 M/mm3 (4.30-5.90); White Blood Cell Count 5.96 K/mm3 (4.00-11.30)
[2024-02-12 07:52] LABS: Albumin, Blood 2.9 g/dL (3.4-5.0); Albumin/Globulin Ratio 0.9 (0.8-1.8); Bilirubin, Total 0.4 mg/dL (0.1-1.0); Bun/Creatinine Ratio 37.8 (12.0-20.0); Calcium, Blood 8.2 mg/dL (8.5-10.1); Creatinine, Blood 1.72 mg/dL (0.60-1.20); Globulin, Blood 3.2 g/dL (2.2-4.0); Potassium, Blood 4.1 mmol/L (3.5-5.5); Total Protein, Blood 6.1 g/dL (6.4-8.2)
[2024-02-12] MEDS ORDERED: Dose Adjust by Pharmacy XX STA ×2 (10:47→18:15)
[2024-02-12] MEDS ORDERED: Isosorbide Mononitrate 60 MG TABCR PO SCH ×2 (11:00)
--- NOTE | 2024-02-12 11:02 | NUR ---
PROGRESS NOTE HEPARIN TITRATED FROM 15 UNITS/PER/KG/HR TO 14. PER PHARMACY PHONE CALL AND NEW ORDERS. VARIFIED BY SIERRA. PT SITTING UP IN BED TALKING TO FAMILY MEMBER AT THIS TIME. CALL LIGHT IN REACH.
[2024-02-12] MEDS ORDERED: Peg 400/Hypromellose/Glycerin 15 DROP/ML BTL BOTHEYES PRN (13:35)
[2024-02-12] MEDS ORDERED: Insulin Regular 100 UNIT/ML 10ML Vial SC SCH (16:30)
--- NOTE | 2024-02-12 18:27 | NUR ---
SHIFT SUMMARY PT IS A+O TO SELF, PLACE, INTERMIT TO TIME AND SITUATION. PT HAS A BED ALARM ON WHILE IN BED, 1 ASSIST TO THE BATHROOM FOR LINE MANAGMENT. VSS, HR IN THE 50'S DURING SHIFT. HEPARIN RUNNING AT 13 U/K/HR, SUMA W/O ISSUES, NO SIGNS OF BLEEDING OR HEMATOMA. AC/HS CBG ORDERED DURING SHIFT, LAST CBG OF 174. ROOM AIR SATURATING AT 98%. PT URINATING W/O DIFFICULTY DURING SHIFT. FAMILY UPDATED ON OPTIONS OF CARE FOR PT BY CARDIOLOGY. FAMILY REMAIN IN ROOM, CALL LIGHT IN REACH. WILL CONT. TO MONITOR.
[2024-02-12] MEDS ORDERED: NIFEdipine 60 MG TabCR PO SCH (21:00)
--- NOTE | 2024-02-12 21:27 | NUR ---
Assumed care of pt at 1900. Pt is alert and oriented and resting on bed. Pt is hard of hearing and sts he does not have his hearing aids in. Pt has heparin running at rate of 13unit/kg/hr as ordered. Pt is on room air, maintaining sats >95%. Fine crackles to bilat bases. Pt is on telemetry- nsr rate of 60s observed. BP stable at this time. Pt instructed to use call light for needs, verbalized understanding. Bed alarm on for pt safety. PT remains is isolation for covid. Denies current needs. Call light w/ in reach. Bed in lowest, locked position.
[2024-02-13 01:20] LABS: BASOPHILS ABSOLUTE AUTO 0.02 K/mm3 (0.00-0.23); BASOPHILS PERCENT AUTO 0 % (0-2); EOSINOPHILS PERCENT AUTO 0 % (0-6); Hematocrit 29.1 % (37.0-53.0); Hemoglobin 9.6 g/dL (13.5-17.5); IMMATURE GRAN ABSOLUTE AUTO 0.01 K/mm3 (0.00-0.10); IMMATURE GRAN PERCENT AUTO 0 % (0-1); LYMPHOCYTES ABSOLUTE AUTO 2.11 K/mm3 (0.84-5.20); LYMPHOCYTES PERCENT AUTO 28 % (21-46); MONOCYTES ABSOLUTE AUTO 0.73 K/mm3 (0.16-1.47); MONOCYTES PERCENT AUTO 10 % (4-13); Mean Corpuscular HGB 31.6 pg (26.0-34.0); Mean Corpuscular Volume 96 fL (80-100); Mean Platelet Volume 10.6 fL (9.1-12.4); NEUTROPHILS ABSOLUTE AUTO 4.64 K/mm3 (1.96-9.15); NEUTROPHILS PERCENT AUTO 62 % (41-73); Platelet Count 145 K/mm3 (150-400); RDW Coefficient Variation 15.6 % (11.7-14.2); RDW Standard Deviation 54.4 fL (35.1-46.3); Red Blood Cell Count 3.04 M/mm3 (4.30-5.90); White Blood Cell Count 7.51 K/mm3 (4.00-11.30)
[2024-02-13 01:36] LABS: Bun/Creatinine Ratio 35.8 (12.0-20.0); Calcium, Blood 8.3 mg/dL (8.5-10.1); Creatinine, Blood 1.93 mg/dL (0.60-1.20); Potassium, Blood 4.4 mmol/L (3.5-5.5)
[2024-02-13] MEDS ORDERED: Clarify Drug Order XX ONE (02:15)
[2024-02-13] MEDS ORDERED: ELIQUIS2.5 MG PO (02:22)
[2024-02-13] MEDS ORDERED: CLON.5 PO (02:24)
[2024-02-13] MEDS ORDERED: DIGOX125 MC1 PO (02:25)
[2024-02-13] MEDS ORDERED: DIPH50 PO (02:26)
[2024-02-13] MEDS ORDERED: DOCU100 PO (02:28)
[2024-02-13] MEDS ORDERED: EUTHYROX125 MCG PO (02:29)
[2024-02-13] MEDS ORDERED: METO50 PO (02:30)
[2024-02-13] MEDS ORDERED: MIDO5 PO (02:31)
[2024-02-13] MEDS ORDERED: MULVITA PO (02:32)
[2024-02-13] MEDS ORDERED: PANT40 PO (02:32)
[2024-02-13] MEDS ORDERED: SERT100 PO (02:34)
[2024-02-13] MEDS ORDERED: SEVEC800 PO (02:35)
[2024-02-13 04:23] VITALS: BP 107/57
--- NOTE | 2024-02-13 05:10 | NUR ---
End of shift summary No acute events. Pt appropriate w/ care and cooperative. Slept through most of shift w/ out incident. Used call light and was assisted by pt ocular care aide to use urinal w/ good output. Pt has heparin running as ordered at 13units/kg/hr. Isolation precautions continued. Pt on room air t/o shift, maintained o2 sats> 92%. Crackles in bilat lung bases. Bp stable. Hr tonia in 50s while sleeping. Pt afebrile. Call light w/ in reach. Plan of care ongoing.
[2024-02-13 07:46] VITALS: BP 162/75
[2024-02-13] MEDS ORDERED: Famotidine 20 MG Tab PO SCH (09:00)
[2024-02-13 11:38] VITALS: BP 159/69
--- NOTE | 2024-02-13 15:27 | NUR ---
Ethics consultation order received and processed. Medical history, social matrix, and disposition strategy reviewed. Concerns expressed, that while the principal is ostensibly compos mentis, the POC is being heavily and unduly influenced by his spouse. The EHR notes appear to indicate the principals faculties are grossly intact, with no clear decisional or capacity deficits observed. An MME could be requested and performed if a more formal level of clinincal certainty is preferred. If the principal were to be discovered incapacitated, then it would be his spouses liability and privilege to operate as proxy both on his behalf, and in his best interest. If he were to be found compos mentis, then it would be his prerogative to establish goals of care independent of his wifes input, with her full collaboration and support, or in complete deference to her wishes. None of these options violate his dignity or autonomy, as long as they are being facilitated willingly and knowingly i.e. uncoerced. Thank you for this consult. Brendan Niño, PhD, MANUEL
--- NOTE | 2024-02-13 17:24 | NUR ---
PROGRESS NOTE CARDIOLOGY TO PT ROOM TO UPDATE PT, SPOUSE AND DAUGHTER W/ OPTIONS FOR CARE/ CARE PLAN. PT SITTING UP IN BED AT THIS TIME. CALL LIGHT IN REACH
[2024-02-13] MEDS ORDERED: NS 1,000 ML IV SCH (17:40)
[2024-02-13 17:58] VITALS: BP 149/70
--- NOTE | 2024-02-13 18:17 | NUR ---
SHIFT SUMMARY VSS, HR IN THE 60'S THROUGHOUT SHIFT. PT IS A+O X4 AT END OF SHIFT. PT REMAINS ON ROOM AIR AT THIS TIME. PT IS A SBA TO THE BATHROOM. PT USING CALL LIGHT AND MAKING NEEDS KNOWN DURING SHIFT. UP TO CHAIR FOR MOST OF THE DAY. NO ACUTE CHANGES DURING THIS SHIFT, PT IN NO APPARENT DISTRESS. CURRENTLY SITTING UP IN CHAIR AT THIS TIME VISITNG W/ FAMILY FINISHING HIS DINNER TRAY. WILL CONTINUE TO MONITOR UNTIL END OF SHIFT.
--- NOTE | 2024-02-13 19:00 | NUR ---
ASSUMED CARE ASSUMED CARE OF PATIENT. SITTING UP IN CHAIR, VISITING WITH FAMILY. RA SATS STABLE. DENIES SPB/DYSPNEA. OCCASIONAL NON-PRODUCTIVE COUGH. NS INFUSING AT 75MLS/HR PER ORDER. HR HIGH 50s-60. REMAINS IN ISOLATION FOR COVID. SEE SHIFT ASSESSMENT FOR FULL ASSESSMENT.
[2024-02-13 19:51] VITALS: BP 123/77
[2024-02-14] VITALS (17 sets, daily range): BP systolic 87–159; BP diastolic 43–82
[2024-02-14 04:06] LABS: BASOPHILS ABSOLUTE AUTO 0.02 K/mm3 (0.00-0.23); BASOPHILS PERCENT AUTO 0 % (0-2); EOSINOPHILS ABSOLUTE AUTO 0.01 K/mm3 (0.00-0.68); EOSINOPHILS PERCENT AUTO 0 % (0-6); Hematocrit 31.5 % (37.0-53.0); IMMATURE GRAN ABSOLUTE AUTO 0.02 K/mm3 (0.00-0.10); IMMATURE GRAN PERCENT AUTO 0 % (0-1); LYMPHOCYTES ABSOLUTE AUTO 2.01 K/mm3 (0.84-5.20); LYMPHOCYTES PERCENT AUTO 30 % (21-46); MONOCYTES ABSOLUTE AUTO 0.59 K/mm3 (0.16-1.47); MONOCYTES PERCENT AUTO 9 % (4-13); Mean Corpuscular HGB 31.1 pg (26.0-34.0); Mean Corpuscular HGB Conc 31.7 g/dL (31.5-36.5); Mean Corpuscular Volume 98 fL (80-100); Mean Platelet Volume 10.6 fL (9.1-12.4); NEUTROPHILS ABSOLUTE AUTO 4.15 K/mm3 (1.96-9.15); NEUTROPHILS PERCENT AUTO 61 % (41-73); Platelet Count 142 K/mm3 (150-400); RDW Coefficient Variation 15.3 % (11.7-14.2); RDW Standard Deviation 54.8 fL (35.1-46.3); Red Blood Cell Count 3.22 M/mm3 (4.30-5.90)
[2024-02-14 04:25] LABS: Bun/Creatinine Ratio 37.1 (12.0-20.0); Calcium, Blood 8.3 mg/dL (8.5-10.1); Creatinine, Blood 1.59 mg/dL (0.60-1.20); Potassium, Blood 4.3 mmol/L (3.5-5.5)
--- NOTE | 2024-02-14 06:09 | NUR ---
SHIFT SUMMARY NO ACUTE CHANGES. RESTED QUIETLY WITH EYES CLOSED T/O MOST OF NOC. ROUSES EASILY TO VERBAL STIMULI. NO C/O PAIN OR NAUSEA. DENIES SPB/DYSPNEA. RA SATS STABLE. RESPIRATIONS EVEN AND UNLABORED. UP TO BATHROOM WITH 1 PERSON ASSIST. C/O FEELING MORE WEAK THIS AM. VSS. VOIDING WITHOUT DIFFICULTY. PT HAS BEEN NPO SINCE MIDNO. WILL REPORT TO ONCOMING RN WHEN AVAILABLE.
[2024-02-14] MEDS ORDERED: NS 1,000 ML IV ONE ×2 (06:29→06:31)
[2024-02-14] MEDS ORDERED: Verapamil HCL 2.5 MG/ML 2ML Injection ONE (06:29)
[2024-02-14] MEDS ORDERED: NS 250 ML IV ONE (06:29)
[2024-02-14] MEDS ORDERED: Heparin Sodium 1000 Units/ML 10ML MDV ONE (06:29)
[2024-02-14] MEDS ORDERED: Nitroglycerin 2 MG/20 ML BTL ONE (06:29)
[2024-02-14] MEDS ORDERED: FentaNYL Citrate 50 MCG/ML 2 ML Injection ONE ×2 (06:35→08:29)
[2024-02-14] MEDS ORDERED: Midazolam HCl 1MG / ML 2ML Vial ONE ×2 (06:36→08:31)
--- NOTE | 2024-02-14 06:48 | NUR ---
UNLOADER TO UNLOADER AT THIS TIME.
--- NOTE | 2024-02-14 07:24 | NUR ---
ASSUMING CARE ASSUMING CARE AT 0700, PT IS OUT OF ROOM AT THIS TIME GETTING AN ANGIOGRAM.
[2024-02-14] MEDS ORDERED: Labetalol HCL 5 MG/ML 4ML Injection (Single Dose) ONE ×2 (07:49→08:15)
[2024-02-14] MEDS ORDERED: HydrALAZINE HCl 20 MG / ML 1ML Vial ONE (08:09)
[2024-02-14] MEDS ORDERED: Famotidine 20 MG Tab PO SCH (09:00)
--- NOTE | 2024-02-14 09:00 | NUR ---
NURSE NOTE PT ARRIVES BACK TO ROOM FROM MANAGER SALT. PT IS SNORING ON ARRIVAL, PT IS DROWSY. PT IS ON 4 LITERS ON OXYGEN AT THIS TIME. SPO2 SHOWS 99% ON THE MONITOR. BEDSIDE REPORT FROM MANAGER SALT NURSE. PT TO REMIAN FLAT AT THIS TIME. PT HAS A R FEMORAL SITE ACCESS, SITE ASSESSED FREE OF VISUAL BLEEDING. CLINICAL SITTER CALLED TO COME SIT BEDSIDE W/ PT FOR RECOVRY PROCESS.
--- NOTE | 2024-02-14 10:34 | NUR ---
NURSE NOTE VVS, B/P 137/57, HR IN THE 60'S, PT STILL LAYING FLAT AT THIS TIME. PT IS ON 2 LITER O2 SPO2 AT 96%. R GROIN SIT ASSESSED FREE OF BLEEDING, HEMATOMA, OR REDNESS AT THIS TIME. CLINICAL SITTING IN ROOM TO ASSIST W/ RECOVERY. CALL LIGHT IN REACH.
[2024-02-14] MEDS ORDERED: NS 1,000 ML IV SCH (11:25)
--- NOTE | 2024-02-14 15:39 | NUR ---
LATE ENTRY- 02/13- WENT TO SEE PATIENT. DISCUSSED CASE WITH BEDSIDE RN. THERE WAS CONCERN ABOUT PATIENTS ABILITY TO MAKE DECISIONS PER . BEDSIDE RN HAS NOT SEEN ANY CONFUSION WITH THE PATIENT. ETHICS WAS CONSULTED. PATIENT WILL HAVE COG EVALUATION PREFORMED TO HELP DETERMINE HIS DECISION MAKING CAPACITY.
--- NOTE | 2024-02-14 19:01 | NUR ---
SHIFT SUMMARY PT A+O X4 AT END OF SHIFT. PT STOOD AT BEDSIDE AND UP TO CHAIR. PT SUMA MOVEMENT WELL. VSS BEFORE AND AFTER MOVEMENT. FAMILY AT BEDSIDE. CARDIOLOGY SPOKE W/ FAMILY DURING SHIFT UPDATED THEM ON THE PROCEDURE, RESULTS AND RECCOMENDATION FOR CARE MOVING FORWARD. NO ACUTE ISSUES DURING MY SHIFT. FAMILY REMAINS AT BEDSIDE AT THIS TIME. CALL LIGHT IN REACH
--- NOTE | 2024-02-14 19:12 | NUR ---
R groin site c/d/i; femostop in place once back from labor and delivery nurse, Dr Doe at bedside this afternoon for removal; pt laid flat for 6 hours and sat up per protocol; site remains c/d/i. Will continue to monitor.
[2024-02-14] MEDS ORDERED: NIFEdipine 60 MG TabCR PO SCH (21:00)
--- NOTE | 2024-02-14 23:23 | NUR ---
ASSUMPTION OF CARE/ASSESSMENT: ASSUMED CARE OF PT @ 1900; BEDSIDE REPORT RECIEVED FROM ALONSO MCKOY. PT A&O X 3, PLEASANT AND COOPERATIVE WITH CARE. EEK AT BASELINE. PT SBA FOR AMBULATION; PT OBSERVED STEADY ON FEET WHEN AMBULATING FROM RECLINER TO BED. PT INDEPENDENT WITH TURNS IN BED. PT NC @ 2LPM WHEN SLEEPING, LUNGS CLEAR WITH DIM BASES; SPO2 94<. SINUS JAYLA ON MONITOR WITH HR 50'S, BP STABLE AND DENIES CHEST PAIN/PRESSURE AT THIS TIME. PT POST ORTHOTIST PROSTHETIST WITH ACCES SITES TO R. BRACHIAL AND R. FEMORAL; DRESSINGS IN PLACE TO SITES, SITES SOFT, NON-TENDER. PT TOLERATES PO INTAKE. PT RESTING QUIETLY, BED LOWERED, CALL LIGHT IN REACH.
[2024-02-15] VITALS (8 sets, daily range): BP systolic 100–147; BP diastolic 39–79
[2024-02-15 04:30] LABS: BASOPHILS ABSOLUTE AUTO 0.01 K/mm3 (0.00-0.23); BASOPHILS PERCENT AUTO 0 % (0-2); EOSINOPHILS ABSOLUTE AUTO 0.01 K/mm3 (0.00-0.68); EOSINOPHILS PERCENT AUTO 0 % (0-6); Hematocrit 28.3 % (37.0-53.0); Hemoglobin 9.1 g/dL (13.5-17.5); IMMATURE GRAN ABSOLUTE AUTO 0.02 K/mm3 (0.00-0.10); IMMATURE GRAN PERCENT AUTO 0 % (0-1); LYMPHOCYTES ABSOLUTE AUTO 1.91 K/mm3 (0.84-5.20); LYMPHOCYTES PERCENT AUTO 39 % (21-46); MONOCYTES ABSOLUTE AUTO 0.55 K/mm3 (0.16-1.47); MONOCYTES PERCENT AUTO 11 % (4-13); Mean Corpuscular HGB 31.6 pg (26.0-34.0); Mean Corpuscular HGB Conc 32.2 g/dL (31.5-36.5); Mean Corpuscular Volume 98 fL (80-100); Mean Platelet Volume 10.6 fL (9.1-12.4); NEUTROPHILS ABSOLUTE AUTO 2.39 K/mm3 (1.96-9.15); NEUTROPHILS PERCENT AUTO 49 % (41-73); Platelet Count 123 K/mm3 (150-400); RDW Coefficient Variation 15.5 % (11.7-14.2); RDW Standard Deviation 55.5 fL (35.1-46.3); Red Blood Cell Count 2.88 M/mm3 (4.30-5.90); White Blood Cell Count 4.89 K/mm3 (4.00-11.30)
[2024-02-15 04:53] LABS: Bun/Creatinine Ratio 36.6 (12.0-20.0); Calcium, Blood 7.9 mg/dL (8.5-10.1); Creatinine, Blood 1.72 mg/dL (0.60-1.20); Potassium, Blood 4.6 mmol/L (3.5-5.5)
[2024-02-15] MEDS ORDERED: Atropine Sulfate 0.1 MG/ML 10ML SYR IV PRN (06:05)
--- NOTE | 2024-02-15 06:06 | NUR ---
SHIFT SUMMARY: NO ACUTE CHANGES OVERNIGHT. DR ALVARADO UPDATED REGARDING HR TRENDING DOWN OVER THE LAST 24 HOURS; EKG COMPLETE AND REVIEWED BY PROVIDER. PT REMAINS IN SB WITH RATE IN THE 40'S, SBP 100-120'S AND MAP 58<. PT ASYMPTOMATIC OF BRADYCARDIA. PT HAS NOT VOIDED THIS SHIFT; BLADDER SCAN COMPLETED AND ONLY SHOWING 244 MLS. PT ENCOURAGED TO DRINK PO FLUIDS; PT DENEIS SUPRAPUBIC PAIN. URINAL AT BEDSIDE. BED LOWERED, CALL LIGHT IN REACH. WILL REPORT OFF TO ONCOMING RN.
[2024-02-15] MEDS ORDERED: Midodrine 5 MG Tab PO PRN (06:15)
[2024-02-15] MEDS ORDERED: Bumetanide 0.25 MG/ML 4ML ViaL IV SCH (10:30)
[2024-02-15 10:41] LABS: Source, Urine Foley catheter
[2024-02-15 10:45] LABS: Appearance, Urine Clear (Clear); Bilirubin, Urine Neg (Neg); Blood, Urine Neg (Neg); Color, Urine Yellow (P-Yellow); Glucose Qualitative, Urine Neg (Neg); Ketones, Urine Neg (Neg); Leukocyte Esterase, Urine Neg (Neg); Nitrite, Urine Neg (Neg); Protein, Urine 3+ (Neg); Urobilinogen, Urine NORM (Normal)
[2024-02-15 11:26] LABS: Bacteria Rare /hpf; Red Blood Cells, Urine 0-2 /hpf (0-2); Squamous Epithelial Cells Rare /hpf (Few); White Blood Cells, Urine 0-2 /hpf (0-5)
[2024-02-15 11:27] LABS: Hyaline Casts 0-2 /lpf (0-2)
--- NOTE | 2024-02-15 16:29 | NUR ---
DISCUSSED CASE WITH OT AND MATTHEW MCKOY. PATIENT SCORED A 6/30 ON HIS COG SCREEN. REPORTEDLY CAME AND STATED THAT PATIENT DID NOT HAVE HIS HEARING AIDS IN AT THE TIME AND THE SCREEN MAY NOT BE ACCURATE. OT WENT TO REEVALUATE BUT REFUSED THE RESCREEN. SHE REPORTED THAT THEY HAD THAT INFORMATION AT THE [facility]. CASE MANAGMENT REQUESTED RECORDS. WILL CONTINUE TO PROVIDE SUPPORT.
[2024-02-15] MEDS ORDERED: Carvedilol 6.25 MG Tab PO SCH (17:00)
--- NOTE | 2024-02-15 18:10 | NUR ---
PT SUMMARY; NO ACUTE CHANGE FOR THE SHIFT, VITALS HRR 50-60'S EPISODES OF BRADYING DOWN TO 40'S THIS MORNING PT HAS BEEN ASYMPTOMATIC. COREG REDUCED TO 6.25MG BID PER DR CYR, SBP 140'S, SATS ABOVE 95% ON RA ON 2L WHEN ASLEEP, AFEBRILE. COGNITIVE EVAL WAS DONE PER OT PT SCORED 11/18 DAUGHTER NILO AT THE BEDSIDE ON THE PHONE WITH THE , GOT UPSET ASKING WHO ORDERED THE EVAL AND ALSO CONCERNED ABOUT NOT GETTING ACCURATE RESULT ON THE EVAL PT DIDNT HAVE HIS HEARING AIDS ON, NILO FROM OT WHO DID THE EVAL CAME AND TALK TO THE FAMILY AND PT ABOUT THE RESULT AND ANSWERED SOME QUESTIONS. PT FOR INPTATIENT TRANSFER TO [facility] POSSIBLY ON MONDAY FOR A TAVR. MATTHEW WAS PLACED WELL PT HAS BEEN RETAINING DR CYR ORDERED SOME DIURETICS AND APPROVED MATTHEW FOR IT. PT HAS BEEN GETTING UP STOOD UP AT THE SIDE OF THE BED TO TRY TO URINATE PRIOR TO CATHETER PLACEMENT PT ONLY VOID 100MLS AND THERE WAS >500MLS UPON BLADDER SCAN. PT HAS BEEN EATING AND DRINKING WITH NO ISSUES, CALLS APPROPRIATELY, WILL REPORT TO ONCOMING SHIFT
[2024-02-16] MEDS ORDERED: Heparin Sodium,Porcine 5,000 UNIT/0.5 ML SDV SC SCH
[2024-02-16 03:00] VITALS: BP 125/54
[2024-02-16 04:20] LABS: BASOPHILS ABSOLUTE AUTO 0.01 K/mm3 (0.00-0.23); BASOPHILS PERCENT AUTO 0 % (0-2); EOSINOPHILS ABSOLUTE AUTO 0.04 K/mm3 (0.00-0.68); EOSINOPHILS PERCENT AUTO 1 % (0-6); Hematocrit 29.5 % (37.0-53.0); Hemoglobin 9.5 g/dL (13.5-17.5); IMMATURE GRAN ABSOLUTE AUTO 0.01 K/mm3 (0.00-0.10); IMMATURE GRAN PERCENT AUTO 0 % (0-1); LYMPHOCYTES PERCENT AUTO 34 % (21-46); MONOCYTES ABSOLUTE AUTO 0.48 K/mm3 (0.16-1.47); MONOCYTES PERCENT AUTO 8 % (4-13); Mean Corpuscular HGB Conc 32.2 g/dL (31.5-36.5); Mean Corpuscular Volume 96 fL (80-100); Mean Platelet Volume 10.3 fL (9.1-12.4); NEUTROPHILS ABSOLUTE AUTO 3.59 K/mm3 (1.96-9.15); NEUTROPHILS PERCENT AUTO 58 % (41-73); Platelet Count 129 K/mm3 (150-400); RDW Coefficient Variation 15.3 % (11.7-14.2); RDW Standard Deviation 53.8 fL (35.1-46.3); Red Blood Cell Count 3.06 M/mm3 (4.30-5.90); White Blood Cell Count 6.23 K/mm3 (4.00-11.30)
[2024-02-16 04:46] LABS: Bun/Creatinine Ratio 39.5 (12.0-20.0); Calcium, Blood 8.2 mg/dL (8.5-10.1); Creatinine, Blood 1.62 mg/dL (0.60-1.20)
--- NOTE | 2024-02-16 05:39 | NUR ---
SHIFT SUMMARY PT A&O TO PERSON, PLACE AND SITUATION. VSS, AFEBRILE, SPO2 >95% RA, BP STABLE. TELE SHOWS SR/SB 50'S-60'S. PT DENIES SOB OR CP AT THIS TIME. MATTHEW IN PLACE DRAINING YELLOW URINE TO GRAVITY. R GROIN SITE IS FREE FROM BLEEDING, OR REDNESS. AREA IS NON TENDER. PT IS RESTING QUIETLY IN BED, CALL LIGHT IN REACH, BREATHING EVEN AND UNLABORED.
[2024-02-16 07:27] VITALS: BP 141/55
[2024-02-16] MEDS ORDERED: N-Acetylcysteine 600 MG CAP PO SCH (09:00)
[2024-02-16] MEDS ORDERED: Darbepoetin Alfa in Polysorbat 25 MCG/0.42 ML Syringe SC SCH (16:00)
[2024-02-16 16:14] VITALS: BP 127/56
--- NOTE | 2024-02-16 18:12 | NUR ---
PT SUMMARY; NO AUCTE CHANGE FOR THE SHIFT, TRNASFER PERSON FROM [facility] CALLED UPDATE WAS GIVEN PT AWAITING FOR BED AT THIS TIME, [employer] OPERATOR CALLED AND WAS GIVEN UPDATE ABOUT THE TRANSFER STATUS. FAMILY AT THE BEDSIDE BEFORE THE END OF SHIFT AND WAS ALSO GIVEN UPDATE. VITALS HAS BEEN STABLE FOR THE SHIFT. PT HAS BEEN GETITNG UP TO GO TO THE BATHROOM AND UP IN THE RECLINER. DENIES ANY PAIN OR DISCOMFORT, 24 HR URINE COLLECTION ONGOING. NO OTHER ISSUES REPORTED. WILL REPORT TO ONCOMING SHIFT
--- NOTE | 2024-02-16 19:30 | NUR ---
REPORT GIVEN TO CYNDI MCKOY IN MEDICAL FLOOR TO TRANSFER PT TO RM [id number].
[2024-02-16 20:03] VITALS: BP 128/69
[2024-02-16 20:40] VITALS: BP 147/61
[2024-02-17 03:45] VITALS: BP 136/61
[2024-02-17 05:29] LABS: BASOPHILS ABSOLUTE AUTO 0.01 K/mm3 (0.00-0.23); BASOPHILS PERCENT AUTO 0 % (0-2); EOSINOPHILS ABSOLUTE AUTO 0.11 K/mm3 (0.00-0.68); EOSINOPHILS PERCENT AUTO 2 % (0-6); Hematocrit 27.9 % (37.0-53.0); IMMATURE GRAN ABSOLUTE AUTO 0.02 K/mm3 (0.00-0.10); IMMATURE GRAN PERCENT AUTO 0 % (0-1); LYMPHOCYTES ABSOLUTE AUTO 2.01 K/mm3 (0.84-5.20); LYMPHOCYTES PERCENT AUTO 44 % (21-46); MONOCYTES ABSOLUTE AUTO 0.46 K/mm3 (0.16-1.47); MONOCYTES PERCENT AUTO 10 % (4-13); Mean Corpuscular HGB 31.3 pg (26.0-34.0); Mean Corpuscular HGB Conc 32.3 g/dL (31.5-36.5); Mean Corpuscular Volume 97 fL (80-100); Mean Platelet Volume 10.4 fL (9.1-12.4); NEUTROPHILS ABSOLUTE AUTO 1.98 K/mm3 (1.96-9.15); NEUTROPHILS PERCENT AUTO 43 % (41-73); Platelet Count 139 K/mm3 (150-400); RDW Standard Deviation 53.3 fL (35.1-46.3); Red Blood Cell Count 2.88 M/mm3 (4.30-5.90); White Blood Cell Count 4.59 K/mm3 (4.00-11.30)
[2024-02-17 05:56] LABS: Albumin, Blood 2.5 g/dL (3.4-5.0); Albumin/Globulin Ratio 0.7 (0.8-1.8); Bilirubin, Total 0.3 mg/dL (0.1-1.0); Bun/Creatinine Ratio 38.5 (12.0-20.0); Creatinine, Blood 1.48 mg/dL (0.60-1.20); Globulin, Blood 3.6 g/dL (2.2-4.0); Phosphorus, Blood 3.1 mg/dL (2.5-4.9); Potassium, Blood 4.1 mmol/L (3.5-5.5); Total Protein, Blood 6.1 g/dL (6.4-8.2)
[2024-02-17 07:43] VITALS: BP 156/61
[2024-02-17] MEDS ORDERED: Bumetanide 1 MG Tab PO SCH (09:00)
[2024-02-17 10:10] LABS: Protein, Urine Quantitative 86.2 mg/dL (0.0-11.9)
[2024-02-17 17:04] VITALS: BP 141/60
--- NOTE | 2024-02-17 17:31 | NUR ---
SHIFT SUMMARY: PATIENT ALERT; STATES THAT HE FEELS BETTER AND BREATHING BETTER. PATIENT GOT UP AND TOOK A SHOWER TODAY; ASSISTED BY FAMILY. PATIENT ORIENTED TO SELF, PERSON, AND PARTIALLY TO SITUATION. DOES NOT KNOW DATE OR PLACE. HE WAS FEBRILE THIS AFTERNOON; GIVEN TYLENOL. PATIENT IN BED, FAMILY AT BEDSIDE, CALL LIGHT PROVIDED, BED ALARM SET, NO SIGNS OR SYMPTOMS OF DISTRESS, PLAN OF CARE ONGOING. SPOKE WITH GERMAN FROM THE [facility] TRANSFER [facility] TODAY AT 1230 TO GIVE HER AN UPDATE ON THE PATIENT. SHE RESPONDED THAT THERE IS A DELAY IN BEDS AND THAT THEY WILL KEEP UP POSTED AND IF THERE IS A DECLINE IN THE PATIENT TO HAVE THE DOCTOR CALL THEM.
[2024-02-17 19:30] VITALS: BP 124/59
--- NOTE | 2024-02-18 05:28 | NUR ---
SHIFT SUMMARY PATIENT HAD NO ACUTE CHANGES. ALERT TO SELF AND FAMILY. HX DEMENTIA. DR BOWMAN REPORTED PATIENT NOT TRANSFERRING TO [facility] THIS EVENING SHIFT. ONE ASSIST TO BSC. MATTHEW PATENT AND DRAINING TO GRAVITY. PIV INTACT. TELE MONITOR NSR 61. DENIES CHEST PAIN, SOB, AND N/V. VSS/AFEBRILE. FAMILY IN FOR FIRST HALF OF SHIFT. CALL LIGHT IN REACH. BED IN LOWEST POSITION. WILL CONTINUE TO MONITOR UNTIL DAY SHIFT NURSE ASSUMES CARE.
[2024-02-18 05:58] LABS: BASOPHILS ABSOLUTE AUTO 0.02 K/mm3 (0.00-0.23); BASOPHILS PERCENT AUTO 0 % (0-2); EOSINOPHILS ABSOLUTE AUTO 0.33 K/mm3 (0.00-0.68); EOSINOPHILS PERCENT AUTO 6 % (0-6); Hematocrit 29.2 % (37.0-53.0); Hemoglobin 9.7 g/dL (13.5-17.5); IMMATURE GRAN ABSOLUTE AUTO 0.02 K/mm3 (0.00-0.10); IMMATURE GRAN PERCENT AUTO 0 % (0-1); LYMPHOCYTES ABSOLUTE AUTO 2.21 K/mm3 (0.84-5.20); LYMPHOCYTES PERCENT AUTO 42 % (21-46); MONOCYTES ABSOLUTE AUTO 0.53 K/mm3 (0.16-1.47); MONOCYTES PERCENT AUTO 10 % (4-13); Mean Corpuscular HGB 31.3 pg (26.0-34.0); Mean Corpuscular HGB Conc 33.2 g/dL (31.5-36.5); Mean Corpuscular Volume 94 fL (80-100); Mean Platelet Volume 9.9 fL (9.1-12.4); NEUTROPHILS ABSOLUTE AUTO 2.21 K/mm3 (1.96-9.15); NEUTROPHILS PERCENT AUTO 42 % (41-73); Platelet Count 151 K/mm3 (150-400); RDW Coefficient Variation 14.9 % (11.7-14.2); RDW Standard Deviation 51.2 fL (35.1-46.3); White Blood Cell Count 5.32 K/mm3 (4.00-11.30)
[2024-02-18 06:32] LABS: Albumin, Blood 2.5 g/dL (3.4-5.0); Anion Gap 12 mmol/L (3-11); Blood Urea Nitrogen 63 mg/dL (8-24); Bun/Creatinine Ratio 44.4 (12.0-20.0); CO2, Blood 21 mmol/L (21-32); Calcium, Blood 7.9 mg/dL (8.5-10.1); Chloride, Blood 109 mmol/L (98-108); Creatinine, Blood 1.42 mg/dL (0.60-1.20); Glomerular Filtration Rate 48 (60-); Glucose, Blood 88 mg/dL (70-99); Magnesium, Blood 2.2 mg/dL (1.6-2.4); Potassium, Blood 4.3 mmol/L (3.5-5.5); Sodium, Blood 138 mmol/L (136-145)
[2024-02-18 07:43] VITALS: BP 145/65
[2024-02-18 11:53] VITALS: BP 145/65
--- NOTE | 2024-02-18 12:48 | NUR ---
TRANSFER PT [place] TRANSFERED VIA GURNEY ACOMPANIED BY BY AMBULANCE TEAM
--- NOTE | 2024-02-18 13:05 | NUR ---
REPORT RECEIVED VERIFIED A/O VSS VERY PLEASENT AWAITING TRANSFER TO [facility]. FAMILY AT BEDSIDE NO WORD OF AVAILABLE BED. PARTS TECHNICIAN AT BEDSIDE, MARY ORDERED PLUS COVID TEST AND IMPLEMENTED. PT AMBULATED IN ROOM TO BATHOOM DID VERY WELL, HAD BM. BED AVAILABLE, REPORT CALLED TO MEDICAL FLOOR, RM 16. TRANSFER ORDERED. 1230 TRANSFER TEAM ARRIVED AND PT WAS DISCHARGED
[2024-02-18 13:15] LABS: SARS-Cov-2 (COVID-19) PCR, MMC POSITIVE (NEGATIVE)
== END 2024-02-18 12:42 | disposition short-term general hospital (02) | DRG 280 ==
LOC: ER 20:06 → PCU 02-11 02:25 → MEDS 02-11 02:25 → EDBEDREQTM 02-11 03:34 → EDBEDREQDT 02-11 03:34 → EDBEDREQ 02-11 03:34 → EDBEDREQSVC 02-11 03:34 → MEDS 02-11 04:20 → PCU 02-11 06:06 → MEDS 02-16 20:28
PROVIDERS: Family Medicine; Internal Medicine; Internal Medicine Nephrology; Student in an Organized Health Care Education/Training Program; ADMIT Internal Medicine
PROC: 5A09357 Assistance with Respiratory Ventilation, Less than 24 Consecutive Hours, Continuous Positive Airway Pressure (ICD-10-PCS; 2024-02-11)
PROC: 3E0333Z Introduction of Anti-inflammatory into Peripheral Vein, Percutaneous Approach (ICD-10-PCS; 2024-02-11)
PROC: 4A023N8 Measurement of Cardiac Sampling and Pressure, Bilateral, Percutaneous Approach (ICD-10-PCS; principal; 2024-02-14)
PROC: B2111ZZ Fluoroscopy of Multiple Coronary Arteries using Low Osmolar Contrast (ICD-10-PCS; 2024-02-14)
PROC: B21F1ZZ Fluoroscopy of Other Bypass Graft using Low Osmolar Contrast (ICD-10-PCS; 2024-02-14)
DX: I21.4 Non-ST elevation (NSTEMI) myocardial infarction (principal); I50.43 Acute on chronic combined systolic (congestive) and diastolic (congestive) heart failure; J96.01 Acute respiratory failure with hypoxia; U07.1 COVID-19; J12.82 Pneumonia due to coronavirus disease 2019; I13.0 Hypertensive heart and chronic kidney disease with heart failure and stage 1 through stage 4 chronic kidney disease, or unspecified chronic kidney disease; I16.1 Hypertensive emergency; N17.9 Acute kidney failure, unspecified; E86.9 Volume depletion, unspecified; D63.1 Anemia in chronic kidney disease; I25.10 Atherosclerotic heart disease of native coronary artery without angina pectoris; E78.5 Hyperlipidemia, unspecified; N18.30 Chronic kidney disease, stage 3 unspecified; E11.22 Type 2 diabetes mellitus with diabetic chronic kidney disease; N40.0 Benign prostatic hyperplasia without lower urinary tract symptoms; I35.0 Nonrheumatic aortic (valve) stenosis; G47.33 Obstructive sleep apnea (adult) (pediatric); M19.90 Unspecified osteoarthritis, unspecified site; F03.90 Unspecified dementia, unspecified severity, without behavioral disturbance, psychotic disturbance, mood disturbance, and anxiety; Z79.899 Other long term (current) drug therapy; Z79.82 Long term (current) use of aspirin; Z79.01 Long term (current) use of anticoagulants; Z95.1 Presence of aortocoronary bypass graft; Z87.891 Personal history of nicotine dependence; Z99.89 Dependence on other enabling machines and devices
CPT/HCPCS: 0202U; 36415; 51701; 51702; 71045; 71260; 76770; 76937; 80048; 80053; 80069; 81001; 82947; 83735; 83880; 84100; 84156; 84484; 85014; 85018; 85025; 85049; 85379; 85520; 85610; 85730; 93005; 93010; 93306; 93461; 94644; 94664; 94760; 94762; 96374-59; 97129; 97130; 97165; 99152; 99285-25; A9270; C1760; C1769; C1894; J0360; J0696; J0881; J1100; J1644; J1815; J1940; J2250; J3010; J7030; J7050; Q9967; U0002